=== PATIENT | male | born 1975 | race Caucasian/White ===

== ENCOUNTER 2020-08-23 05:39 | Observation (INO) ==
[2020-08-23] MEDS ORDERED: Ondansetron 4 MG/2 ML VIAL IVP PRN (09:12)
[2020-08-23] MEDS ORDERED: Naloxone 0.4 MG/ML INJ IVP PRN (09:12)
[2020-08-23] MEDS: Nicotine 21 MG PATCH.TD24 TD SCH (10:44)
[2020-08-23] MEDS: Metoprolol XL (24 HR) Succ 25 MG TAB.ER.24H PO SCH (10:45)
[2020-08-23] MEDS: Albuterol 2.5 MG/3 ML NEBULIZER IH SCH ×4 (11:20→23:17)
[2020-08-23] MEDS: *HR* Heparin 5,000 UNIT/ML VIAL SQ SCH (17:03)
[2020-08-24 02:23] LABS: Basophils % 0.2 %; Eosinophils # 0.1 K/mcL (0.0-0.6); Eosinophils % 0.6 %; Hematocrit 40.5 % (37.5-50.1); Hemoglobin 13.7 g/dL (12.9-16.9); Immature Granulocytes % 0.3 % (0-4); Lymphocytes # 2.2 K/mcL (0.6-4.6); Lymphocytes % 20.6 %; Mean Corpuscular HGB Conc 33.8 g/dL (31.6-35.5); Mean Corpuscular Hemoglobin 31.8 pg (28.0-33.3); Mean Platelet Volume 11.6 fL (9.4-12.4); Monocytes # 0.7 K/mcL (0.0-1.3); Monocytes % 6.5 %; Neutrophils # 7.8 K/mcL (1.6-8.9); Platelet Count 240 K/mcL (140-400); Red Blood Count 4.31 M/mcL (4.19-5.50); Red Cell Distribution Width 12.8 % (11.5-14.5); Segmented Neutrophils % 71.8 %; White Blood Count 10.9 K/mcL (4.3-11.1)
[2020-08-24 02:41] LABS: BUN/Creatinine Ratio 29 (6-26); Blood Urea Nitrogen 26 mg/dL (6-20); Calcium 8.6 mg/dL (8.6-10.3); Carbon Dioxide 27 mEq/L (23-29); Chloride 107 mEq/L (98-107); Glucose 131 mg/dL (70-105); Osmolality,Calculated 301 (280-300); Potassium 3.2 mEq/L (3.5-5.1); Sodium 142 mEq/L (136-145); eGFR For African Americans > 60 (> 60); eGFR For Non-African Americans > 60 (> 60)
[2020-08-24] MEDS: Albuterol 2.5 MG/3 ML NEBULIZER IH SCH ×3 (03:53→11:19)
[2020-08-24] MEDS ORDERED: Azithromycin 500 MG in 0.9 % Sodium Chloride 250 ML IVPB SCH (06:00)
[2020-08-24] MEDS ORDERED: cefTRIAXone 1,000 MG in Water for inj. (sterile) 10 ML IVP SCH (06:00)
[2020-08-24] MEDS: *HR* Heparin 5,000 UNIT/ML VIAL SQ SCH (07:21)
[2020-08-24] MEDS ORDERED: Perflutren Lipid Microsphere 1.3 ML in 0.9 % Sodium Chloride 8.7 ML IVP PRN (07:36)
[2020-08-24] MEDS: Metoprolol XL (24 HR) Succ 25 MG TAB.ER.24H PO SCH (07:54)
[2020-08-24] MEDS: Nicotine 21 MG PATCH.TD24 TD SCH (07:54)
[2020-08-24] MEDS ORDERED: Aspirin 81 MG TAB.CHEW PO SCH (09:00)
[2020-08-24] MEDS ORDERED: MethylPREDNISolone 40 MG/ML VIAL IVP SCH (09:00)
[2020-08-24 11:13] VITALS: BP 157/89
== END 2020-08-24 14:20 | disposition home or self-care (01) ==
LOC: 2ANU
PROVIDERS: ADMIT Internal Medicine; ATTEND Internal Medicine

== ENCOUNTER 2020-09-10 00:07 | Inpatient (IN) ==
[2020-09-10] MEDS ORDERED: Naloxone 0.4 MG/ML INJ IVP PRN (01:29)
[2020-09-10] MEDS ORDERED: Ondansetron ODT 4 MG TAB.RAPDIS SL PRN (01:29)
[2020-09-10] MEDS ORDERED: Acetaminophen 325 MG TABLET PO PRN (01:29)
[2020-09-10] MEDS ORDERED: Perflutren Lipid Microsphere 1.3 ML in 0.9 % Sodium Chloride 8.7 ML IVP PRN (01:30)
[2020-09-10] MEDS ORDERED: Ipratropium/Albuterol Neb 3 ML IH PRN (01:31)
[2020-09-10] MEDS ORDERED: *HR* Heparin 5,000 UNIT/ML VIAL IVP PRN (01:32)
[2020-09-10 02:03] LABS: Basophils % 0.3 %; Eosinophils # 0.1 K/mcL (0.0-0.6); Eosinophils % 0.5 %; Hematocrit 41.8 % (37.5-50.1); Hemoglobin 14.1 g/dL (12.9-16.9); Immature Granulocytes % 0.4 % (0-4); Lymphocytes # 0.7 K/mcL (0.6-4.6); Lymphocytes % 7.3 %; Mean Corpuscular HGB Conc 33.7 g/dL (31.6-35.5); Mean Corpuscular Hemoglobin 31.5 pg (28.0-33.3); Mean Corpuscular Volume 93.5 fL (83.0-100.0); Monocytes # 0.1 K/mcL (0.0-1.3); Neutrophils # 8.6 K/mcL (1.6-8.9); Platelet Count 273 K/mcL (140-400); Red Blood Count 4.47 M/mcL (4.19-5.50); Red Cell Distribution Width 13.5 % (11.5-14.5); Segmented Neutrophils % 90.5 %; White Blood Count 9.5 K/mcL (4.3-11.1)
[2020-09-10 02:24] LABS: Alanine Aminotransferase 27 Units/L (7-52); Albumin 3.8 g/dL (3.5-5.7); Albumin/Globulin Ratio 1.3 (1.1-2.2); Alkaline Phosphatase 112 Units/L (34-104); Aspartate Amino Transferase 30 Units/L (13-39); BUN/Creatinine Ratio 30 (6-26); Bilirubin,Total 0.5 mg/dL (0.3-1.0); Blood Urea Nitrogen 25 mg/dL (6-20); Calcium 8.8 mg/dL (8.6-10.3); Carbon Dioxide 22 mEq/L (23-29); Chloride 106 mEq/L (98-107); Chol/HDL Ratio 5.7 (0-4.9); Cholesterol 199 mg/dL (< 200); Glucose 130 mg/dL (70-105); HDL Cholesterol 35 mg/dL (40-59); LDL Cholesterol,Calculated 153 mg/dL (< 100); Magnesium 1.7 mg/dL (1.6-2.6); Osmolality,Calculated 294 (280-300); Potassium 3.5 mEq/L (3.5-5.1); Sodium 139 mEq/L (136-145); Total Protein 6.8 g/dL (6.4-8.9); Triglycerides 55 mg/dL (< 150); eGFR For African Americans > 60 (> 60); eGFR For Non-African Americans > 60 (> 60)
[2020-09-10 02:27] LABS: INR 1.3; Prothrombin Time 15.4 Seconds (9.4-12.1)
[2020-09-10] MEDS: Heparin 25,000UNIT/250ML 1/2NS 25,000 UNIT/250 ML IV.SOLN IVC SCH (02:42)
[2020-09-10 04:47] LABS: Bilirubin,Urine Negative (Negative); Blood,Urine Negative (Negative); Clarity,Urine Clear (Clear); Color,Urine Colorless (Yellow); Glucose,Urine (UA) Normal (Normal); Ketones,Urine Negative (Negative); Leukocyte Esterase,Urine Negative (Negative); Nitrite,Urine Negative (Negative); Protein,Urine Negative (Neg-Trace); Specific Gravity,Urine 1.011 (1.010-1.025); Urobilinogen,Urine Normal (Normal)
[2020-09-10 05:49] LABS: Amphetamine Screen,Urine Positive ng/mL (Cutoff=1000); Barbiturate Screen,Urine Negative ng/mL (Cutoff=200); Benzodiazepines Screen,Urine Negative ng/mL (Cutoff=200); Cannabinoid Screen,Urine Negative ng/mL (Cutoff = 50); Cocaine Screen,Urine Negative ng/mL (Cutoff= 300); Opiate Screen,Urine Negative ng/mL (Cutoff=300); Phencyclidine Screen,Urine Negative ng/mL (Cutoff=25)
[2020-09-10] MEDS ORDERED: Nitroglycerin 0.4 MG TAB.SUBL SL PRN (07:51)
[2020-09-10] MEDS ORDERED: cefTRIAXone 1,000 MG in 0.9 % Sodium Chloride Mini Bag 100 ML IVPB SCH (09:00)
[2020-09-10] MEDS: *HR* LORazepam 0.5 MG TABLET PO PRN (09:14)
[2020-09-10] MEDS: Aspirin 81 MG TAB.CHEW PO SCH (09:15)
[2020-09-10] MEDS: cefTRIAXone 1,000 MG in Water for inj. (sterile) 10 ML IVP SCH (09:15)
[2020-09-10] MEDS: Azithromycin 500 MG in 0.9 % Sodium Chloride 250 ML IVPB SCH (09:16)
[2020-09-10] MEDS: *HR* Heparin 5,000 UNIT/ML VIAL IVP PRN ×2 (09:42→22:42)
[2020-09-10] MEDS: Ipratropium/Albuterol Neb 3 ML IH SCH ×3 (10:30→22:30)
[2020-09-10] MEDS: Furosemide 40 MG/4 ML VIAL IVP SCH (11:29)
[2020-09-10 12:45] LABS: Estimated Average Glucose 114 mg/dl; Hemoglobin A1C 5.6 %
[2020-09-11] MEDS: Ipratropium/Albuterol Neb 3 ML IH SCH ×4 (04:04→22:55)
[2020-09-11] MEDS: *HR* LORazepam 0.5 MG TABLET PO PRN ×2 (04:36→17:29)
[2020-09-11 05:36] LABS: BUN/Creatinine Ratio 34 (6-26); Blood Urea Nitrogen 38 mg/dL (6-20); Calcium 8.9 mg/dL (8.6-10.3); Carbon Dioxide 28 mEq/L (23-29); Chloride 105 mEq/L (98-107); Glucose 110 mg/dL (70-105); Magnesium 1.8 mg/dL (1.6-2.6); Osmolality,Calculated 302 (280-300); Potassium 4.4 mEq/L (3.5-5.1); Sodium 141 mEq/L (136-145); Troponin I 0.08 ng/mL (< 0.04); eGFR For African Americans > 60 (> 60); eGFR For Non-African Americans > 60 (> 60)
[2020-09-11] MEDS: Heparin 25,000UNIT/250ML 1/2NS 25,000 UNIT/250 ML IV.SOLN IVC SCH (05:43)
[2020-09-11] MEDS: *HR* Heparin 5,000 UNIT/ML VIAL IVP PRN (05:44)
[2020-09-11] MEDS: Aspirin 81 MG TAB.CHEW PO SCH (08:10)
[2020-09-11] MEDS: Furosemide 40 MG/4 ML VIAL IVP SCH ×2 (08:11→21:34)
[2020-09-11] MEDS: cefTRIAXone 1,000 MG in Water for inj. (sterile) 10 ML IVP SCH (08:11)
[2020-09-11] MEDS: Azithromycin 500 MG in 0.9 % Sodium Chloride 250 ML IVPB SCH (08:12)
[2020-09-11] MEDS: carvediloL 6.25 MG TABLET PO SCH (17:28)
[2020-09-12] MEDS: Ipratropium/Albuterol Neb 3 ML IH SCH ×4 (04:02→21:42)
[2020-09-12] MEDS: Heparin 25,000UNIT/250ML 1/2NS 25,000 UNIT/250 ML IV.SOLN IVC SCH ×2 (05:19→11:35)
[2020-09-12 07:28] LABS: Hematocrit 43.3 % (37.5-50.1); Hemoglobin 14.4 g/dL (12.9-16.9); Mean Corpuscular HGB Conc 33.3 g/dL (31.6-35.5); Mean Corpuscular Hemoglobin 31.6 pg (28.0-33.3); Mean Platelet Volume 11.9 fL (9.4-12.4); Platelet Count 262 K/mcL (140-400); Red Blood Count 4.56 M/mcL (4.19-5.50); Red Cell Distribution Width 13.4 % (11.5-14.5); White Blood Count 8.9 K/mcL (4.3-11.1)
[2020-09-12 07:49] LABS: BUN/Creatinine Ratio 39 (6-26); Blood Urea Nitrogen 36 mg/dL (6-20); Calcium 8.9 mg/dL (8.6-10.3); Carbon Dioxide 27 mEq/L (23-29); Chloride 101 mEq/L (98-107); Glucose 93 mg/dL (70-105); Osmolality,Calculated 294 (280-300); Potassium 3.7 mEq/L (3.5-5.1); Sodium 138 mEq/L (136-145); eGFR For African Americans > 60 (> 60); eGFR For Non-African Americans > 60 (> 60)
[2020-09-12] MEDS: lisinopriL 5 MG TABLET PO SCH (08:04)
[2020-09-12] MEDS: carvediloL 6.25 MG TABLET PO SCH ×2 (08:04→16:38)
[2020-09-12] MEDS: Aspirin 81 MG TAB.CHEW PO SCH (08:04)
[2020-09-12] MEDS: cefTRIAXone 1,000 MG in Water for inj. (sterile) 10 ML IVP SCH (08:06)
[2020-09-12] MEDS: Furosemide 40 MG/4 ML VIAL IVP SCH ×2 (08:06→19:57)
[2020-09-12] MEDS: Azithromycin 500 MG in 0.9 % Sodium Chloride 250 ML IVPB SCH (08:07)
[2020-09-12] MEDS: Spironolactone 25 MG TABLET PO SCH (11:12)
[2020-09-12] MEDS ORDERED: *HR* Heparin 5,000 UNIT/ML VIAL IVP PRN ×2 (11:13)
[2020-09-12] MEDS ORDERED: Furosemide 40 MG/4 ML VIAL IVP ONE (13:00)
[2020-09-12] MEDS: *HR* LORazepam 0.5 MG TABLET PO PRN (16:42)
[2020-09-13] MEDS: Ipratropium/Albuterol Neb 3 ML IH SCH ×2 (04:09→09:24)
[2020-09-13 07:42] VITALS: BP 113/71
[2020-09-13] MEDS: *HR* LORazepam 0.5 MG TABLET PO PRN (08:09)
[2020-09-13] MEDS: Aspirin 81 MG TAB.CHEW PO SCH (08:09)
[2020-09-13] MEDS: lisinopriL 5 MG TABLET PO SCH (08:09)
[2020-09-13] MEDS: Spironolactone 25 MG TABLET PO SCH (08:09)
[2020-09-13] MEDS: carvediloL 6.25 MG TABLET PO SCH (08:10)
[2020-09-13] MEDS: cefTRIAXone 1,000 MG in Water for inj. (sterile) 10 ML IVP SCH (08:10)
[2020-09-13] MEDS: Furosemide 40 MG/4 ML VIAL IVP SCH (08:10)
[2020-09-13] MEDS: Azithromycin 500 MG in 0.9 % Sodium Chloride 250 ML IVPB SCH (08:11)
[2020-09-13] MEDS: Heparin 25,000UNIT/250ML 1/2NS 25,000 UNIT/250 ML IV.SOLN IVC SCH (08:11)
[2020-09-13 08:56] LABS: Hematocrit 44.6 % (37.5-50.1); Hemoglobin 14.7 g/dL (12.9-16.9); Mean Corpuscular Hemoglobin 30.9 pg (28.0-33.3); Mean Corpuscular Volume 93.9 fL (83.0-100.0); Mean Platelet Volume 11.2 fL (9.4-12.4); Platelet Count 276 K/mcL (140-400); Red Blood Count 4.75 M/mcL (4.19-5.50); Red Cell Distribution Width 13.3 % (11.5-14.5); White Blood Count 7.3 K/mcL (4.3-11.1)
[2020-09-13 09:17] LABS: BUN/Creatinine Ratio 45 (6-26); Blood Urea Nitrogen 40 mg/dL (6-20); Calcium 8.8 mg/dL (8.6-10.3); Carbon Dioxide 28 mEq/L (23-29); Chloride 100 mEq/L (98-107); Glucose 100 mg/dL (70-105); Osmolality,Calculated 294 (280-300); Potassium 3.8 mEq/L (3.5-5.1); Sodium 137 mEq/L (136-145); eGFR For African Americans > 60 (> 60); eGFR For Non-African Americans > 60 (> 60)
== END 2020-09-13 10:38 | disposition left against medical advice (07) | DRG 720 ==
LOC: 2ANU → SUATTDRO 01:11
PROVIDERS: ADMIT Student in an Organized Health Care Education/Training Program; ATTEND General Practice

== ENCOUNTER 2020-09-29 18:07 | Inpatient (IN) ==
[2020-09-29] MEDS ORDERED: Naloxone 0.4 MG/ML INJ IVP PRN (20:31)
[2020-09-29] MEDS ORDERED: Ondansetron 4 MG/2 ML VIAL IVP PRN (20:31)
[2020-09-29] MEDS: Acetaminophen 325 MG TABLET PO PRN (21:20)
[2020-09-29] MEDS: Melatonin 3 MG TABLET PO PRN (21:20)
[2020-09-30] MEDS: Aspirin 325 MG TABLET PO SCH ×2 (00:22→08:15)
[2020-09-30 05:34] LABS: Hematocrit 43.8 % (37.5-50.1); Immature Granulocytes % 0.3 % (0-4); Lymphocytes # 0.9 K/mcL (0.6-4.6); Lymphocytes % 10.5 %; Mean Corpuscular HGB Conc 34.2 g/dL (31.6-35.5); Mean Corpuscular Hemoglobin 32.2 pg (28.0-33.3); Mean Platelet Volume 11.4 fL (9.4-12.4); Monocytes # 0.4 K/mcL (0.0-1.3); Monocytes % 4.6 %; Neutrophils # 7.5 K/mcL (1.6-8.9); Platelet Count 383 K/mcL (140-400); Red Blood Count 4.66 M/mcL (4.19-5.50); Red Cell Distribution Width 13.7 % (11.5-14.5); Segmented Neutrophils % 84.6 %; White Blood Count 8.9 K/mcL (4.3-11.1)
[2020-09-30] MEDS: *HR* Heparin 5,000 UNIT/ML VIAL SQ SCH ×2 (05:39→17:57)
[2020-09-30 06:26] LABS: Magnesium 1.8 mg/dL (1.6-2.6); Troponin I 0.07 ng/mL (< 0.04)
[2020-09-30 06:27] LABS: Alanine Aminotransferase 207 Units/L (7-52); Albumin 3.3 g/dL (3.5-5.7); Albumin/Globulin Ratio 1.2 (1.1-2.2); Alkaline Phosphatase 217 Units/L (34-104); Aspartate Amino Transferase 74 Units/L (13-39); BUN/Creatinine Ratio 37 (6-26); Bilirubin,Total 0.5 mg/dL (0.3-1.0); Blood Urea Nitrogen 33 mg/dL (6-20); Calcium 8.5 mg/dL (8.6-10.3); Carbon Dioxide 22 mEq/L (23-29); Chloride 105 mEq/L (98-107); Globulin 2.7 g/dL (2.4-3.5); Glucose 152 mg/dL (70-105); Osmolality,Calculated 294 (280-300); Phosphorous 2.7 mg/dL (2.7-4.5); Potassium 4.1 mEq/L (3.5-5.1); Sodium 137 mEq/L (136-145); eGFR For African Americans > 60 (> 60); eGFR For Non-African Americans > 60 (> 60)
[2020-09-30] MEDS ORDERED: Furosemide 40 MG/4 ML VIAL IVP SCH (06:30)
[2020-09-30] MEDS: Nicotine 21 MG PATCH.TD24 TD SCH ×2 (06:47→08:49)
[2020-09-30] MEDS: Furosemide 40 MG/4 ML VIAL IVP SCH (17:57)
[2020-09-30] MEDS ORDERED: Melatonin 3 MG TABLET PO ONE (18:57)
[2020-09-30] MEDS ORDERED: hydrOXYzine pamoate 25 MG CAPSULE PO ONE (18:57)
[2020-09-30 19:46] LABS: Lactate Dehydrogenase 193 Units/L (140-271)
[2020-09-30] MEDS: Melatonin 3 MG TABLET PO PRN (20:15)
[2020-09-30] MEDS: Acetaminophen 325 MG TABLET PO PRN (20:15)
[2020-10-01 05:51] LABS: BUN/Creatinine Ratio 39 (6-26); Blood Urea Nitrogen 38 mg/dL (6-20); Calcium 8.2 mg/dL (8.6-10.3); Carbon Dioxide 25 mEq/L (23-29); Chloride 103 mEq/L (98-107); Glucose 105 mg/dL (70-105); Osmolality,Calculated 293 (280-300); Potassium 3.5 mEq/L (3.5-5.1); Sodium 137 mEq/L (136-145); eGFR For African Americans > 60 (> 60); eGFR For Non-African Americans > 60 (> 60)
[2020-10-01] MEDS: *HR* Heparin 5,000 UNIT/ML VIAL SQ SCH ×2 (06:30→17:21)
[2020-10-01] MEDS: Aspirin 325 MG TABLET PO SCH (09:13)
[2020-10-01] MEDS: Nicotine 21 MG PATCH.TD24 TD SCH (09:14)
[2020-10-01] MEDS: Furosemide 40 MG/4 ML VIAL IVP SCH ×2 (09:14→17:21)
[2020-10-01] MEDS: lisinopriL 5 MG TABLET PO SCH (12:19)
[2020-10-01 19:16] LABS: Glucose,Pleural Fluid 118 mg/dL (No Ref Range); LDH,Pleural Fluid 76 Units/L (No Ref Range); Total Protein,Pleural Fluid < 2.0 g/dL
[2020-10-01 19:27] LABS: RBC,Pleural Fluid 3000 RBC/mcL
[2020-10-01 21:00] LABS: Basophils,Pleural Fluid 0 %; Eosinophils,Pleural Fluid 0 %; Monocytes,Pleural Fluid 0 %
[2020-10-01 21:08] LABS: Appearance of Pleural Fl Hazy (Clear)
[2020-10-02 01:43] LABS: BUN/Creatinine Ratio 42 (6-26); Blood Urea Nitrogen 41 mg/dL (6-20); Calcium 8.6 mg/dL (8.6-10.3); Carbon Dioxide 31 mEq/L (23-29); Chloride 96 mEq/L (98-107); Glucose 87 mg/dL (70-105); Osmolality,Calculated 293 (280-300); Potassium 3.4 mEq/L (3.5-5.1); Sodium 137 mEq/L (136-145); eGFR For African Americans > 60 (> 60); eGFR For Non-African Americans > 60 (> 60)
[2020-10-02] MEDS: *HR* Heparin 5,000 UNIT/ML VIAL SQ SCH ×2 (05:35→17:40)
[2020-10-02] MEDS: lisinopriL 5 MG TABLET PO SCH (08:21)
[2020-10-02] MEDS: Furosemide 40 MG/4 ML VIAL IVP SCH (08:21)
[2020-10-02] MEDS: Nicotine 21 MG PATCH.TD24 TD SCH (08:21)
[2020-10-02] MEDS: Aspirin 325 MG TABLET PO SCH (08:21)
[2020-10-02] MEDS: Metoprolol XL (24 HR) Succ 25 MG TAB.ER.24H PO SCH ×2 (11:30→17:41)
[2020-10-02] MEDS: Furosemide 40 MG TABLET PO SCH (17:40)
[2020-10-02] MEDS: Potassium Citrate 10 MEQ TABLET.ER PO SCH (20:04)
[2020-10-02] MEDS: Melatonin 3 MG TABLET PO PRN (20:05)
[2020-10-03 03:27] LABS: Basophils # 0.1 K/mcL (0.0-0.2); Basophils % 0.6 %; Eosinophils # 0.3 K/mcL (0.0-0.6); Eosinophils % 3.5 %; Hematocrit 44.9 % (37.5-50.1); Hemoglobin 14.8 g/dL (12.9-16.9); Immature Granulocytes % 0.9 % (0-4); Lymphocytes # 2.8 K/mcL (0.6-4.6); Lymphocytes % 28.9 %; Mean Corpuscular Hemoglobin 31.9 pg (28.0-33.3); Mean Corpuscular Volume 96.8 fL (83.0-100.0); Mean Platelet Volume 10.6 fL (9.4-12.4); Monocytes # 0.7 K/mcL (0.0-1.3); Monocytes % 7.5 %; Neutrophils # 5.6 K/mcL (1.6-8.9); Platelet Count 380 K/mcL (140-400); Red Blood Count 4.64 M/mcL (4.19-5.50); Red Cell Distribution Width 14.1 % (11.5-14.5); Segmented Neutrophils % 58.6 %; White Blood Count 9.6 K/mcL (4.3-11.1)
[2020-10-03 03:50] LABS: BUN/Creatinine Ratio 40 (6-26); Blood Urea Nitrogen 33 mg/dL (6-20); Calcium 8.7 mg/dL (8.6-10.3); Carbon Dioxide 29 mEq/L (23-29); Chloride 98 mEq/L (98-107); Glucose 99 mg/dL (70-105); Osmolality,Calculated 289 (280-300); Potassium 3.7 mEq/L (3.5-5.1); Sodium 136 mEq/L (136-145); eGFR For African Americans > 60 (> 60); eGFR For Non-African Americans > 60 (> 60)
[2020-10-03] MEDS: *HR* Heparin 5,000 UNIT/ML VIAL SQ SCH ×2 (04:49→18:12)
[2020-10-03] MEDS: lisinopriL 5 MG TABLET PO SCH (08:07)
[2020-10-03] MEDS: Metoprolol XL (24 HR) Succ 25 MG TAB.ER.24H PO SCH (08:07)
[2020-10-03] MEDS: Furosemide 40 MG TABLET PO SCH ×2 (08:07→18:12)
[2020-10-03] MEDS: Nicotine 21 MG PATCH.TD24 TD SCH (08:07)
[2020-10-03] MEDS: Aspirin 325 MG TABLET PO SCH (08:07)
[2020-10-03] MEDS: Potassium Citrate 10 MEQ TABLET.ER PO SCH ×2 (08:11→21:19)
[2020-10-03] MEDS ORDERED: hydrOXYzine pamoate 25 MG CAPSULE PO PRN (10:57)
[2020-10-04] MEDS: *HR* Heparin 5,000 UNIT/ML VIAL SQ SCH ×2 (05:19→16:48)
[2020-10-04 06:26] LABS: BUN/Creatinine Ratio 47 (6-26); Blood Urea Nitrogen 36 mg/dL (6-20); Calcium 9.2 mg/dL (8.6-10.3); Carbon Dioxide 28 mEq/L (23-29); Chloride 98 mEq/L (98-107); Glucose 107 mg/dL (70-105); Osmolality,Calculated 287 (280-300); Sodium 134 mEq/L (136-145); eGFR For African Americans > 60 (> 60); eGFR For Non-African Americans > 60 (> 60)
[2020-10-04] MEDS: lisinopriL 5 MG TABLET PO SCH (07:20)
[2020-10-04] MEDS: Metoprolol XL (24 HR) Succ 25 MG TAB.ER.24H PO SCH (07:20)
[2020-10-04] MEDS: Potassium Citrate 10 MEQ TABLET.ER PO SCH ×2 (07:20→20:24)
[2020-10-04] MEDS: Furosemide 40 MG TABLET PO SCH ×2 (07:20→16:48)
[2020-10-04] MEDS: Nicotine 21 MG PATCH.TD24 TD SCH (07:20)
[2020-10-04] MEDS: Aspirin 325 MG TABLET PO SCH (07:20)
[2020-10-04 07:35] LABS: Fluid Source for Cholesterol PLEURAL FLUID
[2020-10-04 10:24] LABS: Cholesterol,Body Fluid 24 mg/dL
[2020-10-04] MEDS ORDERED: Piperacillin/Tazobactam 3.375 GM in Water for inj. (sterile) 20 ML IVP ONE (15:41)
[2020-10-04] MEDS ORDERED: Isovue-370 500 ML BOTTLE IVP ONE (16:04)
[2020-10-04] MEDS: Piperacillin/Tazobactam 3.375 GM in 0.9 % Sodium Chloride Mini Bag 100 ML IVPB SCH (16:49)
[2020-10-05] MEDS: Piperacillin/Tazobactam 3.375 GM in 0.9 % Sodium Chloride Mini Bag 100 ML IVPB SCH ×2 (00:16→05:59)
[2020-10-05] MEDS: Melatonin 3 MG TABLET PO PRN (00:16)
[2020-10-05] MEDS: *HR* Heparin 5,000 UNIT/ML VIAL SQ SCH (04:07)
[2020-10-05 05:18] LABS: Basophils # 0.1 K/mcL (0.0-0.2); Basophils % 1.2 %; Eosinophils # 0.3 K/mcL (0.0-0.6); Hematocrit 45.6 % (37.5-50.1); Hemoglobin 14.8 g/dL (12.9-16.9); Immature Granulocytes % 1.3 % (0-4); Lymphocytes # 2.8 K/mcL (0.6-4.6); Lymphocytes % 26.3 %; Mean Corpuscular HGB Conc 32.5 g/dL (31.6-35.5); Mean Corpuscular Hemoglobin 31.4 pg (28.0-33.3); Mean Corpuscular Volume 96.6 fL (83.0-100.0); Mean Platelet Volume 10.4 fL (9.4-12.4); Monocytes # 0.8 K/mcL (0.0-1.3); Monocytes % 7.8 %; Neutrophils # 6.5 K/mcL (1.6-8.9); Platelet Count 381 K/mcL (140-400); Red Blood Count 4.72 M/mcL (4.19-5.50); Segmented Neutrophils % 60.4 %; White Blood Count 10.8 K/mcL (4.3-11.1)
[2020-10-05 05:37] LABS: BUN/Creatinine Ratio 40 (6-26); Blood Urea Nitrogen 35 mg/dL (6-20); Calcium 9.5 mg/dL (8.6-10.3); Carbon Dioxide 27 mEq/L (23-29); Chloride 97 mEq/L (98-107); Glucose 95 mg/dL (70-105); Osmolality,Calculated 284 (280-300); Potassium 4.4 mEq/L (3.5-5.1); Sodium 133 mEq/L (136-145); eGFR For African Americans > 60 (> 60); eGFR For Non-African Americans > 60 (> 60)
[2020-10-05] MEDS: Furosemide 40 MG TABLET PO SCH (05:59)
[2020-10-05] MEDS: Potassium Citrate 10 MEQ TABLET.ER PO SCH (08:04)
[2020-10-05] MEDS: Aspirin 325 MG TABLET PO SCH (08:04)
[2020-10-05] MEDS: lisinopriL 5 MG TABLET PO SCH (08:04)
[2020-10-05] MEDS: Metoprolol XL (24 HR) Succ 25 MG TAB.ER.24H PO SCH (08:04)
[2020-10-05] MEDS: Nicotine 21 MG PATCH.TD24 TD SCH (08:05)
[2020-10-05 14:48] VITALS: BP 122/79
== END 2020-10-05 23:40 | disposition home or self-care (01) | DRG 194 ==
LOC: CDU → 3BNU 10-01 16:58 → SUATTDRO 10-01 18:40 → UNDODISIN 10-05 17:44
PROVIDERS: ADMIT Internal Medicine; ATTEND Internal Medicine

== ENCOUNTER 2020-11-25 01:14 | Inpatient (IN) ==
[2020-11-25] MEDS ORDERED: Ondansetron 4 MG/2 ML VIAL IVP PRN (03:11)
[2020-11-25] MEDS ORDERED: Naloxone 0.4 MG/ML INJ IVP PRN (03:11)
[2020-11-25 05:56] LABS: Hematocrit 38.5 % (37.5-50.1); Hemoglobin 12.8 g/dL (12.9-16.9); Mean Corpuscular HGB Conc 33.2 g/dL (31.6-35.5); Mean Corpuscular Volume 96.3 fL (83.0-100.0); Mean Platelet Volume 11.5 fL (9.4-12.4); Platelet Count 274 K/mcL (140-400); Segmented Neutrophils % 77.3 %; White Blood Count 10.6 K/mcL (4.3-11.1)
[2020-11-25 05:57] LABS: Basophils % 0.4 %; Eosinophils # 0.1 K/mcL (0.0-0.6); Eosinophils % 0.6 %; Immature Granulocytes % 0.4 % (0-4); Lymphocytes # 1.8 K/mcL (0.6-4.6); Lymphocytes % 16.7 %; Monocytes # 0.5 K/mcL (0.0-1.3); Monocytes % 4.6 %; Neutrophils # 8.2 K/mcL (1.6-8.9)
[2020-11-25 06:07] LABS: Troponin I 0.06 ng/mL (< 0.04)
[2020-11-25 06:55] LABS: Alanine Aminotransferase 23 Units/L (7-52); Albumin 3.5 g/dL (3.5-5.7); Albumin/Globulin Ratio 1.3 (1.1-2.2); Alkaline Phosphatase 102 Units/L (34-104); Aspartate Amino Transferase 23 Units/L (13-39); BUN/Creatinine Ratio 24 (6-26); Bilirubin,Total 0.6 mg/dL (0.3-1.0); Blood Urea Nitrogen 20 mg/dL (6-20); Calcium 8.3 mg/dL (8.6-10.3); Carbon Dioxide 22 mEq/L (23-29); Globulin 2.6 g/dL (2.4-3.5); Glucose 109 mg/dL (70-105); Magnesium 1.8 mg/dL (1.6-2.6); Phosphorous 3.4 mg/dL (2.7-4.5); Total Protein 6.1 g/dL (6.4-8.9); eGFR For African Americans > 60 (> 60); eGFR For Non-African Americans > 60 (> 60)
[2020-11-25 06:56] LABS: Chloride 106 mEq/L (98-107); Osmolality,Calculated 291 (280-300); Potassium 3.6 mEq/L (3.5-5.1); Sodium 139 mEq/L (136-145)
[2020-11-25] MEDS ORDERED: Azithromycin 500 MG in D5% in Water 250 ML IVPB SCH (07:00)
[2020-11-25] MEDS: Piperacillin/Tazobactam 3.375 GM in 0.9 % Sodium Chloride Mini Bag 100 ML IVPB SCH ×2 (07:43→15:34)
[2020-11-25] MEDS: Metoprolol XL (24 HR) Succ 25 MG TAB.ER.24H PO SCH (08:55)
[2020-11-25] MEDS: lisinopriL 5 MG TABLET PO SCH (08:55)
[2020-11-25] MEDS: Nicotine 21 MG PATCH.TD24 TD SCH (08:55)
[2020-11-25] MEDS ORDERED: cefTRIAXone 1,000 MG in Water for inj. (sterile) 10 ML IVP SCH (09:00)
[2020-11-25] MEDS ORDERED: Levalbuterol Neb 0.63 MG/3 ML ONE (11:14)
[2020-11-25] MEDS: Levalbuterol Neb 0.63 MG/3 ML IH SCH ×3 (11:30→21:34)
[2020-11-25] MEDS: Furosemide 40 MG/4 ML VIAL IVP SCH (11:57)
[2020-11-26] MEDS: Piperacillin/Tazobactam 3.375 GM in 0.9 % Sodium Chloride Mini Bag 100 ML IVPB SCH ×4 (00:18→23:35)
[2020-11-26] MEDS: Levalbuterol Neb 0.63 MG/3 ML IH SCH ×4 (03:22→22:06)
[2020-11-26 07:48] LABS: Basophils % 0.4 %; Eosinophils # 0.2 K/mcL (0.0-0.6); Eosinophils % 2.1 %; Hematocrit 37.8 % (37.5-50.1); Hemoglobin 12.7 g/dL (12.9-16.9); Immature Granulocytes % 0.5 % (0-4); Lymphocytes # 2.4 K/mcL (0.6-4.6); Mean Corpuscular HGB Conc 33.6 g/dL (31.6-35.5); Mean Corpuscular Hemoglobin 31.8 pg (28.0-33.3); Mean Corpuscular Volume 94.5 fL (83.0-100.0); Mean Platelet Volume 11.6 fL (9.4-12.4); Monocytes # 0.6 K/mcL (0.0-1.3); Monocytes % 5.5 %; Neutrophils # 7.2 K/mcL (1.6-8.9); Platelet Count 244 K/mcL (140-400); Red Cell Distribution Width 13.8 % (11.5-14.5); Segmented Neutrophils % 68.5 %; White Blood Count 10.5 K/mcL (4.3-11.1)
[2020-11-26] MEDS: Metoprolol XL (24 HR) Succ 25 MG TAB.ER.24H PO SCH (08:09)
[2020-11-26] MEDS: Furosemide 40 MG/4 ML VIAL IVP SCH (08:10)
[2020-11-26] MEDS: Nicotine 21 MG PATCH.TD24 TD SCH (08:10)
[2020-11-26] MEDS: lisinopriL 5 MG TABLET PO SCH (08:10)
[2020-11-26 08:21] LABS: BUN/Creatinine Ratio 28 (6-26); Blood Urea Nitrogen 21 mg/dL (6-20); Carbon Dioxide 23 mEq/L (23-29); Chloride 108 mEq/L (98-107); Glucose 111 mg/dL (70-105); Magnesium 1.6 mg/dL (1.6-2.6); Osmolality,Calculated 292 (280-300); Potassium 3.6 mEq/L (3.5-5.1); Sodium 139 mEq/L (136-145); eGFR For African Americans > 60 (> 60); eGFR For Non-African Americans > 60 (> 60)
[2020-11-26 12:14] LABS: RBC,Pleural Fluid 2000 RBC/mcL
[2020-11-26 12:20] LABS: Appearance of Pleural Fl Hazy (Clear)
[2020-11-26 12:20] LABS: Glucose,Pleural Fluid 118 mg/dL (No Ref Range); LDH,Pleural Fluid 54 Units/L (No Ref Range); Total Protein,Pleural Fluid < 2.0 g/dL
[2020-11-26 13:08] LABS: Basophils,Pleural Fluid 0 %; Eosinophils,Pleural Fluid 0 %
[2020-11-26] MEDS: Vancomycin 1,250 MG/262.5 ML IV.SOLN IVPB SCH (21:14)
[2020-11-27 03:08] LABS: Basophils # 0.1 K/mcL (0.0-0.2); Basophils % 0.5 %; Eosinophils # 0.5 K/mcL (0.0-0.6); Eosinophils % 4.7 %; Hemoglobin 13.4 g/dL (12.9-16.9); Immature Granulocytes % 0.3 % (0-4); Lymphocytes # 2.9 K/mcL (0.6-4.6); Mean Corpuscular HGB Conc 34.4 g/dL (31.6-35.5); Mean Corpuscular Hemoglobin 32.7 pg (28.0-33.3); Mean Corpuscular Volume 95.1 fL (83.0-100.0); Mean Platelet Volume 11.2 fL (9.4-12.4); Monocytes # 0.6 K/mcL (0.0-1.3); Monocytes % 6.5 %; Neutrophils # 5.5 K/mcL (1.6-8.9); Platelet Count 247 K/mcL (140-400); Red Cell Distribution Width 13.8 % (11.5-14.5); White Blood Count 9.6 K/mcL (4.3-11.1)
[2020-11-27 03:25] LABS: BUN/Creatinine Ratio 33 (6-26); Blood Urea Nitrogen 26 mg/dL (6-20); Calcium 8.1 mg/dL (8.6-10.3); Carbon Dioxide 24 mEq/L (23-29); Chloride 106 mEq/L (98-107); Glucose 95 mg/dL (70-105); Magnesium 1.6 mg/dL (1.6-2.6); Osmolality,Calculated 293 (280-300); Potassium 3.6 mEq/L (3.5-5.1); Sodium 139 mEq/L (136-145); eGFR For African Americans > 60 (> 60); eGFR For Non-African Americans > 60 (> 60)
[2020-11-27] MEDS: Levalbuterol Neb 0.63 MG/3 ML IH SCH ×4 (04:30→21:26)
[2020-11-27] MEDS ORDERED: Piperacillin/Tazobactam 3.375 GM VIAL ONE ×2 (08:22→08:52)
[2020-11-27] MEDS: Furosemide 40 MG/4 ML VIAL IVP SCH (08:28)
[2020-11-27] MEDS: lisinopriL 5 MG TABLET PO SCH (08:29)
[2020-11-27] MEDS: Metoprolol XL (24 HR) Succ 25 MG TAB.ER.24H PO SCH (08:30)
[2020-11-27] MEDS: Nicotine 21 MG PATCH.TD24 TD SCH (08:31)
[2020-11-27] MEDS: Vancomycin 1,250 MG/262.5 ML IV.SOLN IVPB SCH ×2 (11:45→20:24)
[2020-11-27] MEDS: Piperacillin/Tazobactam 3.375 GM in 0.9 % Sodium Chloride Mini Bag 100 ML IVPB SCH ×2 (11:52→15:55)
[2020-11-28] MEDS: Piperacillin/Tazobactam 3.375 GM in 0.9 % Sodium Chloride Mini Bag 100 ML IVPB SCH ×4 (00:12→23:33)
[2020-11-28 01:56] LABS: Fluid Source for Albumin PLEURAL FLUID
[2020-11-28 03:14] LABS: Basophils # 0.1 K/mcL (0.0-0.2); Basophils % 0.6 %; Eosinophils # 0.5 K/mcL (0.0-0.6); Eosinophils % 5.4 %; Hematocrit 39.7 % (37.5-50.1); Immature Granulocytes % 0.4 % (0-4); Lymphocytes # 3.1 K/mcL (0.6-4.6); Lymphocytes % 33.7 %; Mean Corpuscular HGB Conc 32.7 g/dL (31.6-35.5); Mean Corpuscular Hemoglobin 31.5 pg (28.0-33.3); Mean Corpuscular Volume 96.1 fL (83.0-100.0); Mean Platelet Volume 11.3 fL (9.4-12.4); Monocytes # 0.5 K/mcL (0.0-1.3); Monocytes % 5.7 %; Platelet Count 283 K/mcL (140-400); Red Blood Count 4.13 M/mcL (4.19-5.50); Red Cell Distribution Width 14.2 % (11.5-14.5); Segmented Neutrophils % 54.2 %; White Blood Count 9.3 K/mcL (4.3-11.1)
[2020-11-28 03:33] LABS: Magnesium 1.9 mg/dL (1.6-2.6)
[2020-11-28 03:34] LABS: BUN/Creatinine Ratio 34 (6-26); Blood Urea Nitrogen 27 mg/dL (6-20); Calcium 8.4 mg/dL (8.6-10.3); Carbon Dioxide 26 mEq/L (23-29); Chloride 106 mEq/L (98-107); Glucose 106 mg/dL (70-105); Osmolality,Calculated 290 (280-300); Potassium 4.3 mEq/L (3.5-5.1); Sodium 137 mEq/L (136-145); eGFR For African Americans > 60 (> 60); eGFR For Non-African Americans > 60 (> 60)
[2020-11-28] MEDS: Levalbuterol Neb 0.63 MG/3 ML IH SCH ×4 (03:58→22:13)
[2020-11-28] MEDS: Nicotine 21 MG PATCH.TD24 TD SCH (08:15)
[2020-11-28] MEDS: Metoprolol XL (24 HR) Succ 25 MG TAB.ER.24H PO SCH ×2 (08:15→21:05)
[2020-11-28] MEDS: Furosemide 40 MG/4 ML VIAL IVP SCH (08:15)
[2020-11-28] MEDS: lisinopriL 5 MG TABLET PO SCH (08:16)
[2020-11-28] MEDS: *HR* Heparin 5,000 UNIT/ML VIAL SQ SCH (18:13)
[2020-11-28] MEDS: Melatonin 3 MG TABLET PO SCH (21:04)
[2020-11-29 02:25] LABS: Basophils # 0.1 K/mcL (0.0-0.2); Basophils % 0.8 %; Eosinophils # 0.5 K/mcL (0.0-0.6); Eosinophils % 5.8 %; Hematocrit 40.8 % (37.5-50.1); Hemoglobin 13.6 g/dL (12.9-16.9); Immature Granulocytes % 0.4 % (0-4); Lymphocytes # 3.2 K/mcL (0.6-4.6); Lymphocytes % 37.7 %; Mean Corpuscular HGB Conc 33.3 g/dL (31.6-35.5); Monocytes # 0.6 K/mcL (0.0-1.3); Monocytes % 7.1 %; Neutrophils # 4.1 K/mcL (1.6-8.9); Platelet Count 306 K/mcL (140-400); Red Blood Count 4.25 M/mcL (4.19-5.50); Red Cell Distribution Width 14.1 % (11.5-14.5); Segmented Neutrophils % 48.2 %; White Blood Count 8.6 K/mcL (4.3-11.1)
[2020-11-29 02:47] LABS: BUN/Creatinine Ratio 41 (6-26); Blood Urea Nitrogen 30 mg/dL (6-20); Calcium 8.8 mg/dL (8.6-10.3); Carbon Dioxide 24 mEq/L (23-29); Chloride 106 mEq/L (98-107); Glucose 105 mg/dL (70-105); Osmolality,Calculated 289 (280-300); Potassium 4.3 mEq/L (3.5-5.1); Sodium 136 mEq/L (136-145); eGFR For African Americans > 60 (> 60); eGFR For Non-African Americans > 60 (> 60)
[2020-11-29] MEDS: Levalbuterol Neb 0.63 MG/3 ML IH SCH ×4 (04:13→22:23)
[2020-11-29] MEDS: *HR* Heparin 5,000 UNIT/ML VIAL SQ SCH ×2 (05:33→16:55)
[2020-11-29] MEDS: Piperacillin/Tazobactam 3.375 GM in 0.9 % Sodium Chloride Mini Bag 100 ML IVPB SCH ×2 (07:50→15:55)
[2020-11-29] MEDS: Furosemide 40 MG/4 ML VIAL IVP SCH (07:51)
[2020-11-29] MEDS: Nicotine 21 MG PATCH.TD24 TD SCH (07:52)
[2020-11-29] MEDS: lisinopriL 5 MG TABLET PO SCH (07:53)
[2020-11-29] MEDS: Metoprolol XL (24 HR) Succ 25 MG TAB.ER.24H PO SCH ×2 (07:53→20:25)
[2020-11-29] MEDS: Melatonin 3 MG TABLET PO SCH (20:25)
[2020-11-30 02:13] LABS: BUN/Creatinine Ratio 35 (6-26); Blood Urea Nitrogen 38 mg/dL (6-20); Calcium 9.5 mg/dL (8.6-10.3); Carbon Dioxide 30 mEq/L (23-29); Chloride 99 mEq/L (98-107); Glucose 86 mg/dL (70-105); Osmolality,Calculated 290 (280-300); Potassium 4.4 mEq/L (3.5-5.1); Sodium 136 mEq/L (136-145); eGFR For African Americans > 60 (> 60); eGFR For Non-African Americans > 60 (> 60)
[2020-11-30] MEDS: Levalbuterol Neb 0.63 MG/3 ML IH SCH ×2 (03:49→09:41)
[2020-11-30 05:34] VITALS: O2SAT 97
[2020-11-30] MEDS: *HR* Heparin 5,000 UNIT/ML VIAL SQ SCH (06:18)
[2020-11-30] MEDS: Metoprolol XL (24 HR) Succ 25 MG TAB.ER.24H PO SCH (09:13)
[2020-11-30] MEDS: lisinopriL 5 MG TABLET PO SCH (09:13)
[2020-11-30] MEDS: Nicotine 21 MG PATCH.TD24 TD SCH ×2 (09:14→12:08)
[2020-11-30 10:52] VITALS: BP 124/90; PULSE 102; TEMP 98.3
== END 2020-11-30 13:47 | disposition home or self-care (01) | DRG 720 ==
LOC: 2NENU → SUATTDRO 02:38
PROVIDERS: ADMIT Family Medicine; ATTEND Internal Medicine

== ENCOUNTER 2021-10-07 14:38 | Observation (INO) ==
[2021-10-07] MEDS ORDERED: Ondansetron ODT 4 MG TAB.RAPDIS SL PRN (17:24)
[2021-10-07] MEDS ORDERED: Naloxone 0.4 MG/ML INJ IVP PRN (17:24)
[2021-10-07] MEDS ORDERED: Melatonin 3 MG TABLET PO PRN (17:24)
[2021-10-07] MEDS ORDERED: Perflutren Lipid Microsphere 1.3 ML in 0.9 % Sodium Chloride 8.7 ML IVP PRN (17:28)
[2021-10-07] MEDS ORDERED: Ipratropium/Albuterol Neb 3 ML IH PRN (18:11)
[2021-10-07] MEDS: Nicotine 21 MG PATCH.TD24 TD SCH (18:15)
[2021-10-07] MEDS ORDERED: Tiotropium 10 INH DOSE IH SCH (18:30)
[2021-10-07 18:33] LABS: Albumin 3.6 g/dL (3.5-5.7); Albumin/Globulin Ratio 1.1 (1.1-2.2); Bilirubin,Direct 1.4 mg/dL (0.0-0.2); Bilirubin,Indirect 1.5 mg/dL (0.0-1.0); Bilirubin,Total 2.9 mg/dL (0.3-1.0); Globulin 3.2 g/dL (2.4-3.5); Total Protein 6.8 g/dL (6.4-8.9)
[2021-10-07 18:45] LABS: Estimated Average Glucose 128 mg/dl; Hemoglobin A1C 6.1 %
[2021-10-07 18:48] LABS: Thyroid Stimulating Hormone 2.737 mcIU/mL (0.340-5.600)
[2021-10-07 19:03] LABS: Vitamin B12 > 1500 pg/mL (250-1100)
[2021-10-07 19:49] LABS: Hepatitis B Surface Antigen Nonreactive (Nonreactive)
[2021-10-07 20:18] LABS: Hepatitis B Core IgM Nonreactive (Nonreactive)
[2021-10-07 20:19] LABS: Hepatitis A Antibody IgM Nonreactive (Nonreactive)
[2021-10-07 20:20] LABS: Hepatitis C Virus Antibody Nonreactive (Nonreactive)
[2021-10-07] MEDS ORDERED: Bumetanide 1 MG/4 ML VIAL IVP SCH (21:00)
[2021-10-07 23:06] LABS: ABG Base Excess 2 mEq/L (-2 to 3); ABG HCO3 21 mEq/L (21-27); ABG Oxygen Saturation 100 % (95-98); ABG PCO2 19 mmHg (35-45); ABG PH 7.64 pH Units (7.32-7.45); ABG PO2 152 mmHg (85-104); ABG TCO2 21 mEq/L (20-26)
[2021-10-07] MEDS: Metoprolol XL (24 HR) Succ 25 MG TAB.ER.24H PO SCH (23:22)
[2021-10-07 23:43] LABS: Bilirubin,Urine Negative (Negative); Blood,Urine Negative (Negative); Clarity,Urine Clear (Clear); Color,Urine Yellow (Yellow); Glucose,Urine (UA) Normal (Normal); Ketones,Urine Negative (Negative); Leukocyte Esterase,Urine Negative (Negative); Nitrite,Urine Negative (Negative); PH,Urine 6.5 pH Units (5.0-8.0); Protein,Urine Trace mg/dL (Neg-Trace); Specific Gravity,Urine 1.022 (1.010-1.025); Urobilinogen,Urine >=8.0 mg/dL (Normal)
[2021-10-07 23:48] LABS: Amphetamine Screen,Urine Positive ng/mL (Cutoff=1000); Barbiturate Screen,Urine Negative ng/mL (Cutoff=200); Benzodiazepines Screen,Urine Negative ng/mL (Cutoff=200); Cannabinoid Screen,Urine Positive ng/mL (Cutoff = 50); Cocaine Screen,Urine Negative ng/mL (Cutoff= 300); Opiate Screen,Urine Negative ng/mL (Cutoff=300); Phencyclidine Screen,Urine Negative ng/mL (Cutoff=25)
[2021-10-08 00:52] LABS: Basophils % 0.4 %; Eosinophils # 0.1 K/mcL (0.0-0.6); Eosinophils % 0.6 %; Immature Granulocytes % 0.5 % (0-4); Lymphocytes # 1.3 K/mcL (0.6-4.6); Lymphocytes % 11.1 %; Mean Corpuscular Volume 93.5 fL (83.0-100.0); Mean Platelet Volume 10.4 fL (9.4-12.4); Monocytes # 0.3 K/mcL (0.0-1.3); Neutrophils # 9.6 K/mcL (1.6-8.9); Nucleated Red Blood Cells 0.2 /100 WBC (0); Platelet Count 298 K/mcL (140-400); Red Blood Count 4.49 M/mcL (4.19-5.50); Red Cell Distribution Width 17.7 % (11.5-14.5); Segmented Neutrophils % 84.4 %; White Blood Count 11.4 K/mcL (4.3-11.1)
[2021-10-08 01:18] LABS: Alanine Aminotransferase 129 Units/L (7-52); Albumin 3.4 g/dL (3.5-5.7); Albumin/Globulin Ratio 1.1 (1.1-2.2); Alkaline Phosphatase 160 Units/L (34-104); Aspartate Amino Transferase 109 Units/L (13-39); BUN/Creatinine Ratio 29 (6-26); Bilirubin,Total 2.7 mg/dL (0.3-1.0); Blood Urea Nitrogen 34 mg/dL (6-20); Carbon Dioxide 28 mEq/L (23-29); Chloride 98 mEq/L (98-107); Chol/HDL Ratio 11.6 (0-4.9); Cholesterol 139 mg/dL (< 200); Globulin 3.2 g/dL (2.4-3.5); Glucose 139 mg/dL (70-105); HDL Cholesterol 12 mg/dL (40-59); LDL Cholesterol,Calculated 91 mg/dL (< 100); Magnesium 1.7 mg/dL (1.6-2.6); Osmolality,Calculated 292 (280-300); Phosphorous 2.5 mg/dL (2.7-4.5); Potassium 3.4 mEq/L (3.5-5.1); Sodium 136 mEq/L (136-145); Total Protein 6.6 g/dL (6.4-8.9); Triglycerides 180 mg/dL (< 150); eGFR For African Americans > 60 (> 60); eGFR For Non-African Americans > 60 (> 60)
[2021-10-08 01:23] LABS: Troponin I 0.05 ng/mL (< 0.04)
[2021-10-08 02:57] LABS: Basophils # 0.1 K/mcL (0.0-0.2); Basophils % 0.5 %; Eosinophils # 0.1 K/mcL (0.0-0.6); Eosinophils % 0.8 %; Hematocrit 41.1 % (37.5-50.1); Hemoglobin 12.9 g/dL (12.9-16.9); Immature Granulocytes % 0.6 % (0-4); Lymphocytes # 1.3 K/mcL (0.6-4.6); Mean Corpuscular HGB Conc 31.4 g/dL (31.6-35.5); Mean Corpuscular Hemoglobin 28.5 pg (28.0-33.3); Mean Corpuscular Volume 90.7 fL (83.0-100.0); Mean Platelet Volume 10.8 fL (9.4-12.4); Monocytes # 0.5 K/mcL (0.0-1.3); Monocytes % 5.1 %; Neutrophils # 8.5 K/mcL (1.6-8.9); Platelet Count 304 K/mcL (140-400); Red Blood Count 4.53 M/mcL (4.19-5.50); Red Cell Distribution Width 17.5 % (11.5-14.5); White Blood Count 10.5 K/mcL (4.3-11.1)
[2021-10-08] MEDS: *HR* Heparin 5,000 UNIT/ML VIAL SQ SCH ×2 (05:49→13:48)
[2021-10-08] MEDS: lisinopriL 5 MG TABLET PO SCH (08:18)
[2021-10-08] MEDS: Aspirin 81 MG TAB.CHEW PO SCH (08:18)
[2021-10-08] MEDS: Metoprolol XL (24 HR) Succ 25 MG TAB.ER.24H PO SCH ×2 (08:18→20:14)
[2021-10-08] MEDS: Bumetanide 1 MG/4 ML VIAL IVP SCH (08:18)
[2021-10-08] MEDS: Spironolactone 25 MG TABLET PO SCH (08:18)
[2021-10-08] MEDS: Nicotine 21 MG PATCH.TD24 TD SCH (08:19)
[2021-10-08] MEDS ORDERED: Bumetanide 1 MG/4 ML VIAL IVP SCH (09:00)
[2021-10-08] MEDS: Tiotropium 10 INH DOSE IH SCH (10:46)
[2021-10-08] MEDS ORDERED: Iopamidol - 370 500 ML MLS IVP ONE (13:10)
[2021-10-08] MEDS ORDERED: *HR* Heparin 5,000 UNIT/ML VIAL IVP PRN ×2 (18:06)
[2021-10-08] MEDS ORDERED: *HR* Heparin 5,000 UNIT/ML VIAL IVP ONE (18:06)
[2021-10-08] MEDS ORDERED: Heparin 25,000UNIT/250ML 1/2NS 25,000 UNIT/250 ML IV.SOLN IVC SCH (18:15)
[2021-10-08] MEDS ORDERED: Nicotine 7 MG PATCH.TD24 TD ONE (20:15)
[2021-10-09 01:36] LABS: Basophils % 0.3 %; Eosinophils # 0.1 K/mcL (0.0-0.6); Eosinophils % 1.1 %; Hematocrit 39.1 % (37.5-50.1); Hemoglobin 12.2 g/dL (12.9-16.9); Immature Granulocytes % 0.6 % (0-4); Lymphocytes # 2.2 K/mcL (0.6-4.6); Lymphocytes % 20.9 %; Mean Corpuscular HGB Conc 31.2 g/dL (31.6-35.5); Mean Corpuscular Hemoglobin 28.5 pg (28.0-33.3); Mean Corpuscular Volume 91.4 fL (83.0-100.0); Mean Platelet Volume 11.1 fL (9.4-12.4); Monocytes # 0.8 K/mcL (0.0-1.3); Monocytes % 7.9 %; Neutrophils # 7.3 K/mcL (1.6-8.9); Platelet Count 290 K/mcL (140-400); Red Blood Count 4.28 M/mcL (4.19-5.50); Red Cell Distribution Width 17.7 % (11.5-14.5); Segmented Neutrophils % 69.2 %; White Blood Count 10.5 K/mcL (4.3-11.1)
[2021-10-09 01:55] LABS: Alanine Aminotransferase 96 Units/L (7-52); Albumin 3.2 g/dL (3.5-5.7); Alkaline Phosphatase 145 Units/L (34-104); Aspartate Amino Transferase 68 Units/L (13-39); BUN/Creatinine Ratio 29 (6-26); Bilirubin,Total 2.4 mg/dL (0.3-1.0); Blood Urea Nitrogen 31 mg/dL (6-20); Calcium 8.5 mg/dL (8.6-10.3); Carbon Dioxide 31 mEq/L (23-29); Chloride 97 mEq/L (98-107); Globulin 3.1 g/dL (2.4-3.5); Glucose 103 mg/dL (70-105); Magnesium 1.6 mg/dL (1.6-2.6); Osmolality,Calculated 287 (280-300); Phosphorous 2.7 mg/dL (2.7-4.5); Potassium 3.3 mEq/L (3.5-5.1); Sodium 135 mEq/L (136-145); Total Protein 6.3 g/dL (6.4-8.9); eGFR For African Americans > 60 (> 60); eGFR For Non-African Americans > 60 (> 60)
[2021-10-09] MEDS ORDERED: *HR* LORazepam 2 MG/ML VIAL IVP ONE (05:45)
[2021-10-09] MEDS: Tiotropium 10 INH DOSE IH SCH (07:46)
[2021-10-09] MEDS: Doxycycline 100 MG CAPSULE PO SCH ×2 (08:59→21:58)
[2021-10-09] MEDS: Aspirin 81 MG TAB.CHEW PO SCH (08:59)
[2021-10-09] MEDS: lisinopriL 5 MG TABLET PO SCH (08:59)
[2021-10-09] MEDS: Nicotine 21 MG PATCH.TD24 TD SCH (09:00)
[2021-10-09] MEDS: Metoprolol XL (24 HR) Succ 25 MG TAB.ER.24H PO SCH ×2 (09:00→21:58)
[2021-10-09] MEDS: Bumetanide 1 MG/4 ML VIAL IVP SCH (09:00)
[2021-10-09] MEDS: Spironolactone 25 MG TABLET PO SCH (09:01)
[2021-10-09] MEDS ORDERED: *HR* Heparin 5,000 UNIT/ML VIAL IVP PRN (13:52)
[2021-10-09] MEDS ORDERED: *HR* Heparin 5,000 UNIT/ML VIAL IVP ONE (13:52)
[2021-10-09] MEDS: Heparin 25,000UNIT/250ML 1/2NS 25,000 UNIT/250 ML IV.SOLN IVC SCH (15:23)
[2021-10-09] MEDS ORDERED: *HR* Heparin 5,000 UNIT/ML VIAL SQ SCH (18:00)
[2021-10-09] MEDS: *HR* Heparin 5,000 UNIT/ML VIAL IVP PRN (22:08)
[2021-10-10 03:35] LABS: Basophils # 0.1 K/mcL (0.0-0.2); Basophils % 0.5 %; Eosinophils # 0.2 K/mcL (0.0-0.6); Eosinophils % 1.6 %; Hemoglobin 11.8 g/dL (12.9-16.9); Immature Granulocytes % 0.8 % (0-4); Lymphocytes # 2.2 K/mcL (0.6-4.6); Lymphocytes % 23.7 %; Mean Corpuscular HGB Conc 31.1 g/dL (31.6-35.5); Mean Corpuscular Hemoglobin 28.4 pg (28.0-33.3); Mean Corpuscular Volume 91.6 fL (83.0-100.0); Mean Platelet Volume 10.9 fL (9.4-12.4); Monocytes # 0.7 K/mcL (0.0-1.3); Platelet Count 298 K/mcL (140-400); Red Blood Count 4.15 M/mcL (4.19-5.50); Red Cell Distribution Width 17.3 % (11.5-14.5); Segmented Neutrophils % 65.4 %; White Blood Count 9.2 K/mcL (4.3-11.1)
[2021-10-10 03:51] LABS: Alanine Aminotransferase 78 Units/L (7-52); Albumin 3.3 g/dL (3.5-5.7); Albumin/Globulin Ratio 1.1 (1.1-2.2); Alkaline Phosphatase 154 Units/L (34-104); Aspartate Amino Transferase 48 Units/L (13-39); BUN/Creatinine Ratio 29 (6-26); Blood Urea Nitrogen 24 mg/dL (6-20); Calcium 8.5 mg/dL (8.6-10.3); Carbon Dioxide 25 mEq/L (23-29); Chloride 99 mEq/L (98-107); Globulin 2.9 g/dL (2.4-3.5); Glucose 117 mg/dL (70-105); Osmolality,Calculated 281 (280-300); Potassium 3.2 mEq/L (3.5-5.1); Sodium 133 mEq/L (136-145); Total Protein 6.2 g/dL (6.4-8.9); eGFR For African Americans > 60 (> 60); eGFR For Non-African Americans > 60 (> 60)
[2021-10-10] MEDS: *HR* Heparin 5,000 UNIT/ML VIAL IVP PRN (06:52)
[2021-10-10] MEDS: Tiotropium 10 INH DOSE IH SCH (07:36)
[2021-10-10] MEDS: Doxycycline 100 MG CAPSULE PO SCH (08:09)
[2021-10-10] MEDS: Metoprolol XL (24 HR) Succ 25 MG TAB.ER.24H PO SCH (08:10)
[2021-10-10] MEDS: lisinopriL 5 MG TABLET PO SCH (08:10)
[2021-10-10] MEDS: Aspirin 81 MG TAB.CHEW PO SCH (08:11)
[2021-10-10] MEDS: Spironolactone 25 MG TABLET PO SCH (08:11)
[2021-10-10] MEDS: Bumetanide 1 MG/4 ML VIAL IVP SCH (08:11)
[2021-10-10] MEDS ORDERED: Bumetanide 1 MG TABLET PO SCH (09:00)
[2021-10-10] MEDS: Nicotine 21 MG PATCH.TD24 TD SCH (09:21)
[2021-10-10 15:20] VITALS: BP 115/77; PULSE 92; TEMP 98.4; O2SAT 97
[2021-10-10] MEDS: Heparin 25,000UNIT/250ML 1/2NS 25,000 UNIT/250 ML IV.SOLN IVC SCH (16:30)
== END 2021-10-10 17:07 | disposition short-term general hospital (02) ==
LOC: 2ANU → SUATTDRO 16:53
PROVIDERS: ADMIT Student in an Organized Health Care Education/Training Program; ATTEND Family Medicine

== ENCOUNTER 2021-11-26 02:52 | Inpatient (IN) ==
[2021-11-26 04:12] LABS: Basophils % 0.5 %; Eosinophils # 0.1 K/mcL (0.0-0.6); Eosinophils % 0.7 %; Hematocrit 41.7 % (37.5-50.1); Hemoglobin 12.8 g/dL (12.9-16.9); Immature Granulocytes % 0.4 % (0-4); Lymphocytes # 2.2 K/mcL (0.6-4.6); Lymphocytes % 25.4 %; Mean Corpuscular HGB Conc 30.7 g/dL (31.6-35.5); Mean Corpuscular Hemoglobin 26.8 pg (28.0-33.3); Mean Corpuscular Volume 87.4 fL (83.0-100.0); Mean Platelet Volume 10.8 fL (9.4-12.4); Monocytes # 0.6 K/mcL (0.0-1.3); Monocytes % 6.8 %; Neutrophils # 5.7 K/mcL (1.6-8.9); Platelet Count 308 K/mcL (140-400); Red Blood Count 4.77 M/mcL (4.19-5.50); Red Cell Distribution Width 17.8 % (11.5-14.5); Segmented Neutrophils % 66.2 %; White Blood Count 8.6 K/mcL (4.3-11.1)
[2021-11-26 04:25] LABS: BUN/Creatinine Ratio 27 (6-26); Blood Urea Nitrogen 28 mg/dL (6-20); Carbon Dioxide 26 mEq/L (23-29); Chloride 93 mEq/L (98-107); Glucose 136 mg/dL (70-105); Osmolality,Calculated 282 (280-300); Potassium 3.6 mEq/L (3.5-5.1); Sodium 132 mEq/L (136-145); Troponin I 0.08 ng/mL (< 0.04); eGFR For African Americans > 60 (> 60); eGFR For Non-African Americans > 60 (> 60)
[2021-11-26 04:32] LABS: Influenza A PCR Negative (Negative); Influenza B PCR Negative (Negative); Resp. Syncytial Virus PCR Negative (Negative)
[2021-11-26 04:37] LABS: SARS-CoV-2 by PCR (In House) Negative (Negative)
[2021-11-26] MEDS ORDERED: cefTRIAXone 2,000 MG in 0.9 % Sodium Chloride 20 ML IVP ONE (04:43)
[2021-11-26] MEDS ORDERED: Azithromycin 500 MG in 0.9 % Sodium Chloride 250 ML IVPB ONE (04:44)
[2021-11-26] MEDS ORDERED: Acetaminophen 325 MG TABLET PO PRN (05:28)
[2021-11-26] MEDS ORDERED: Melatonin 3 MG TABLET PO PRN (05:28)
[2021-11-26] MEDS ORDERED: Naloxone 0.4 MG/ML INJ IVP PRN (05:28)
[2021-11-26] MEDS ORDERED: Furosemide 40 MG/4 ML VIAL IVP ONE (05:30)
[2021-11-26] MEDS ORDERED: *HR* LORazepam 0.5 MG TABLET PO ONE (06:40)
[2021-11-26] MEDS ORDERED: Morphine Sulfate 2 MG/ML SYRINGE IVP ONE (08:01)
[2021-11-26] MEDS ORDERED: 0.9 % Sodium Chloride 1,000 ML ONE (08:12)
[2021-11-26] MEDS ORDERED: *HR* Metoprolol 5 MG/5 ML VIAL IVP ONE (08:14)
[2021-11-26] MEDS ORDERED: Iopamidol - 370 500 ML MLS IVP ONE (08:23)
[2021-11-26] MEDS ORDERED: lisinopriL 10 MG TABLET PO SCH (09:00)
[2021-11-26] MEDS ORDERED: Metoprolol XL (24 HR) Succ 25 MG TAB.ER.24H PO SCH (09:00)
[2021-11-26] MEDS: Spironolactone 25 MG TABLET PO SCH (09:13)
[2021-11-26] MEDS: lisinopriL 5 MG TABLET PO SCH (09:14)
[2021-11-26] MEDS: Metoprolol XL (24 HR) Succ 25 MG TAB.ER.24H PO SCH ×2 (09:16→20:33)
[2021-11-26] MEDS: Multivit/Ca/Min/Fe/FA 1 TAB TABLET PO SCH (09:16)
[2021-11-26] MEDS: Apixaban 5 MG TABLET PO SCH ×2 (09:16→20:33)
[2021-11-26] MEDS: Aspirin Enteric Coated 81 MG Tablet PO SCH (09:16)
[2021-11-26] MEDS: Bumetanide 1 MG/4 ML VIAL IVP SCH (09:16)
[2021-11-26] MEDS: Nicotine 21 MG PATCH.TD24 TD SCH (09:17)
[2021-11-26] MEDS: Chlorhexidine Rinse 15 ML MOUTHWASH MM SCH ×2 (09:17→20:33)
[2021-11-26 10:34] LABS: INR 1.7; Prothrombin Time 19.2 Seconds (9.4-12.1)
[2021-11-26 10:37] LABS: Activated Partial Thrombo Time 33.8 Seconds (26.0-36.0)
[2021-11-26 10:45] LABS: Albumin 3.8 g/dL (3.5-5.7); Albumin/Globulin Ratio 1.2 (1.1-2.2); Bilirubin,Direct 1.3 mg/dL (0.0-0.2); Bilirubin,Indirect 1.2 mg/dL (0.0-1.0); Bilirubin,Total 2.5 mg/dL (0.3-1.0); Globulin 3.1 g/dL (2.4-3.5); Total Protein 6.9 g/dL (6.4-8.9)
[2021-11-26] MEDS: Ipratropium/Albuterol Neb 3 ML IH SCH ×3 (10:47→22:37)
[2021-11-26] MEDS: Budesonide/Formoterol 160/4.5 1 PUFF INH IH SCH ×2 (10:47→22:37)
[2021-11-26 12:16] LABS: Amphetamine Screen,Urine Positive ng/mL (Cutoff=1000); Barbiturate Screen,Urine Negative ng/mL (Cutoff=200); Benzodiazepines Screen,Urine Negative ng/mL (Cutoff=200); Cannabinoid Screen,Urine Positive ng/mL (Cutoff = 50); Cocaine Screen,Urine Negative ng/mL (Cutoff= 300); Opiate Screen,Urine Positive ng/mL (Cutoff=300); Phencyclidine Screen,Urine Negative ng/mL (Cutoff=25)
[2021-11-27 01:54] LABS: Basophils % 0.3 %; Eosinophils % 0.1 %; Hematocrit 38.4 % (37.5-50.1); Hemoglobin 12.1 g/dL (12.9-16.9); Immature Granulocytes % 0.4 % (0-4); Lymphocytes # 0.7 K/mcL (0.6-4.6); Lymphocytes % 6.1 %; Mean Corpuscular HGB Conc 31.5 g/dL (31.6-35.5); Mean Corpuscular Hemoglobin 27.1 pg (28.0-33.3); Mean Corpuscular Volume 85.9 fL (83.0-100.0); Mean Platelet Volume 10.8 fL (9.4-12.4); Monocytes # 0.5 K/mcL (0.0-1.3); Monocytes % 4.5 %; Platelet Count 290 K/mcL (140-400); Red Blood Count 4.47 M/mcL (4.19-5.50); Red Cell Distribution Width 17.8 % (11.5-14.5); Segmented Neutrophils % 88.6 %; White Blood Count 11.3 K/mcL (4.3-11.1)
[2021-11-27 02:34] LABS: Folate 18.3 ng/mL (3.0-16.0)
[2021-11-27 03:41] LABS: % Iron Saturation 9 % (20-55); BUN/Creatinine Ratio 27 (6-26); Blood Urea Nitrogen 21 mg/dL (6-20); Calcium 7.7 mg/dL (8.6-10.3); Carbon Dioxide 29 mEq/L (23-29); Chloride 95 mEq/L (98-107); Glucose 159 mg/dL (70-105); Iron 32 mcg/dL (65-175); Osmolality,Calculated 280 (280-300); Potassium 2.4 mEq/L (3.5-5.1); Sodium 132 mEq/L (136-145); Transferrin 268 mg/dL (203-362); eGFR For African Americans > 60 (> 60); eGFR For Non-African Americans > 60 (> 60)
[2021-11-27 03:53] LABS: Ferritin 49 ng/mL (20-250); Thyroid Stimulating Hormone 1.245 mcIU/mL (0.340-5.600)
[2021-11-27] MEDS: Ipratropium/Albuterol Neb 3 ML IH SCH ×4 (04:10→22:34)
[2021-11-27] MEDS: lisinopriL 5 MG TABLET PO SCH (08:53)
[2021-11-27] MEDS: Aspirin Enteric Coated 81 MG Tablet PO SCH (08:53)
[2021-11-27] MEDS: Multivit/Ca/Min/Fe/FA 1 TAB TABLET PO SCH (08:53)
[2021-11-27] MEDS: Nicotine 21 MG PATCH.TD24 TD SCH (08:54)
[2021-11-27] MEDS: Bumetanide 1 MG/4 ML VIAL IVP SCH (08:54)
[2021-11-27] MEDS: Apixaban 5 MG TABLET PO SCH ×2 (08:54→20:09)
[2021-11-27] MEDS: Metoprolol XL (24 HR) Succ 25 MG TAB.ER.24H PO SCH (08:54)
[2021-11-27] MEDS: Chlorhexidine Rinse 15 ML MOUTHWASH MM SCH ×2 (09:04→20:09)
[2021-11-27] MEDS: Spironolactone 25 MG TABLET PO SCH (09:07)
[2021-11-27] MEDS: *HR* Metoprolol 5 MG/5 ML VIAL IVP PRN (09:14)
[2021-11-27] MEDS: Ondansetron 4 MG/2 ML VIAL IVP PRN ×3 (09:27→23:14)
[2021-11-27] MEDS ORDERED: *HR* Metoprolol 5 MG/5 ML VIAL IVP ONE (09:52)
[2021-11-27] MEDS: *HR* LORazepam 1 MG TABLET PO PRN ×2 (10:20→20:09)
[2021-11-27] MEDS: Budesonide/Formoterol 160/4.5 1 PUFF INH IH SCH ×2 (10:46→22:34)
[2021-11-27] MEDS ORDERED: 0.9 % Sodium Chloride 500 ML ONE (11:24)
[2021-11-27] MEDS ORDERED: Nicotine 21 MG PATCH.TD24 TD SCH (11:30)
[2021-11-27] MEDS ORDERED: 0.9 % Sodium Chloride 500 ML IVC ONE (11:36)
[2021-11-27] MEDS ORDERED: *HR* Digoxin 0.5 MG/2 ML AMPUL IVP ONE (13:28)
[2021-11-27] MEDS: carvediloL 6.25 MG TABLET PO SCH (16:17)
[2021-11-27] MEDS: QUEtiapine Fumarate 25 MG TABLET PO SCH (20:20)
[2021-11-28] MEDS: *HR* Metoprolol 5 MG/5 ML VIAL IVP PRN (00:25)
[2021-11-28 00:45] LABS: ABG Base Excess 0 mEq/L (-2 to 3); ABG HCO3 23 mEq/L (21-27); ABG Oxygen Saturation 98 % (95-98); ABG PCO2 32 mmHg (35-45); ABG PH 7.46 pH Units (7.32-7.45); ABG PO2 102 mmHg (85-104); ABG TCO2 24 mEq/L (20-26)
[2021-11-28 00:48] LABS: Basophils # 0.1 K/mcL (0.0-0.2); Basophils % 0.4 %; Eosinophils % 0.2 %; Hematocrit 42.2 % (37.5-50.1); Hemoglobin 12.8 g/dL (12.9-16.9); Immature Granulocytes % 0.5 % (0-4); Lymphocytes # 2.3 K/mcL (0.6-4.6); Lymphocytes % 16.5 %; Mean Corpuscular HGB Conc 30.3 g/dL (31.6-35.5); Mean Corpuscular Hemoglobin 27.1 pg (28.0-33.3); Mean Corpuscular Volume 89.2 fL (83.0-100.0); Monocytes # 1.1 K/mcL (0.0-1.3); Monocytes % 8.1 %; Neutrophils # 10.2 K/mcL (1.6-8.9); Platelet Count 259 K/mcL (140-400); Red Blood Count 4.73 M/mcL (4.19-5.50); Red Cell Distribution Width 18.9 % (11.5-14.5); Segmented Neutrophils % 74.3 %; White Blood Count 13.8 K/mcL (4.3-11.1)
[2021-11-28] MEDS ORDERED: Furosemide 20 MG/2 ML VIAL IVP ONE (01:03)
[2021-11-28 01:14] LABS: BUN/Creatinine Ratio 21 (6-26); Blood Urea Nitrogen 30 mg/dL (6-20); Calcium 8.8 mg/dL (8.6-10.3); Carbon Dioxide 23 mEq/L (23-29); Chloride 93 mEq/L (98-107); Glucose 77 mg/dL (70-105); Magnesium 1.9 mg/dL (1.6-2.6); Osmolality,Calculated 273 (280-300); Phosphorous 2.3 mg/dL (2.7-4.5); Potassium 4.3 mEq/L (3.5-5.1); Sodium 129 mEq/L (136-145); Troponin I 0.22 ng/mL (< 0.04); eGFR For African Americans > 60 (> 60); eGFR For Non-African Americans 53 (> 60)
[2021-11-28] MEDS ORDERED: Amiodarone Premix 150 MG/100 ML BAG IVPB ONE (01:28)
[2021-11-28] MEDS ORDERED: Amiodarone Premix 360 MG/200 ML BAG IVC ONE ×2 (01:28→02:20)
[2021-11-28] MEDS: Ipratropium/Albuterol Neb 3 ML IH SCH ×4 (03:56→21:58)
[2021-11-28] MEDS: *HR* LORazepam 1 MG TABLET PO PRN (06:24)
[2021-11-28] MEDS: Amiodarone Premix 360 MG/200 ML BAG IVC SCH ×2 (07:44→13:16)
[2021-11-28] MEDS: lisinopriL 5 MG TABLET PO SCH (08:32)
[2021-11-28] MEDS: Nicotine 21 MG PATCH.TD24 TD SCH (08:32)
[2021-11-28] MEDS: Bumetanide 1 MG/4 ML VIAL IVP SCH (08:32)
[2021-11-28] MEDS: Spironolactone 25 MG TABLET PO SCH (08:33)
[2021-11-28] MEDS: carvediloL 6.25 MG TABLET PO SCH (08:33)
[2021-11-28] MEDS: Aspirin Enteric Coated 81 MG Tablet PO SCH (08:33)
[2021-11-28] MEDS: Chlorhexidine Rinse 15 ML MOUTHWASH MM SCH ×2 (08:33→21:04)
[2021-11-28] MEDS: Apixaban 5 MG TABLET PO SCH (08:33)
[2021-11-28] MEDS: Multivit/Ca/Min/Fe/FA 1 TAB TABLET PO SCH (08:33)
[2021-11-28] MEDS: Budesonide/Formoterol 160/4.5 1 PUFF INH IH SCH ×2 (09:31→21:59)
[2021-11-28] MEDS ORDERED: Azithromycin 500 MG in 0.9 % Sodium Chloride 250 ML IVPB SCH (14:00)
[2021-11-28] MEDS ORDERED: cefTRIAXone 1,000 MG in 0.9 % Sodium Chloride Mini Bag 100 ML IVPB SCH (14:00)
[2021-11-28] MEDS ORDERED: *HR* EPINEPHrine 1 MG/10 ML SYRINGE IVP ONE (14:58)
[2021-11-28] MEDS ORDERED: *HR* FentaNYL (PF) 100 MCG/2 ML VIAL IVP ONE (17:14)
[2021-11-28] MEDS ORDERED: Midazolam HCl 50 MG/50 ML IV.SOLN IVC SCH (17:15)
[2021-11-28] MEDS ORDERED: *HR* Midazolam HCl 5 MG/5 ML VIAL IVP ONE ×2 (17:18→17:19)
[2021-11-28] MEDS ORDERED: 0.9 % Sodium Chloride 1,000 ML ONE (17:24)
[2021-11-28] MEDS: FentaNYL (PF) 1,000 MCG/100 ML IV.SOLN IVC SCH ×2 (17:25→23:25)
[2021-11-28 17:28] LABS: Hematocrit 42.3 % (37.5-50.1); Hemoglobin 13.2 g/dL (12.9-16.9); Mean Corpuscular HGB Conc 31.2 g/dL (31.6-35.5); Mean Corpuscular Hemoglobin 27.7 pg (28.0-33.3); Mean Corpuscular Volume 88.7 fL (83.0-100.0); Platelet Count 234 K/mcL (140-400); Red Blood Count 4.77 M/mcL (4.19-5.50); Red Cell Distribution Width 19.3 % (11.5-14.5); White Blood Count 15.1 K/mcL (4.3-11.1)
[2021-11-28 17:32] LABS: ABG Base Excess -9 mEq/L (-2 to 3); ABG HCO3 15 mEq/L (21-27); ABG Oxygen Saturation 100 % (95-98); ABG PCO2 27 mmHg (35-45); ABG PH 7.35 pH Units (7.32-7.45); ABG PO2 429 mmHg (85-104); ABG TCO2 16 mEq/L (20-26); Blood Gas VT 500 cc
[2021-11-28 17:38] LABS: VBG Ionized Calcium 0.92 mmol/L (1.15-1.35)
[2021-11-28 18:01] LABS: Calcium 8.2 mg/dL (8.6-10.3); Magnesium 2.1 mg/dL (1.6-2.6); Phosphorous 4.7 mg/dL (2.7-4.5); Potassium 4.4 mEq/L (3.5-5.1); Troponin I 0.21 ng/mL (< 0.04)
[2021-11-28] MEDS ORDERED: Artificial Tears SOLN 15 ML BOTTLE BOTH EYES PRN (18:09)
[2021-11-28] MEDS: Norepinephrine 4 MG/254 ML IV.SOLN IVC SCH ×2 (20:15→22:30)
[2021-11-28] MEDS: Artificial Tears SOLN 15 ML BOTTLE BOTH EYES SCH (21:04)
[2021-11-28] MEDS: QUEtiapine Fumarate 25 MG TABLET PO SCH (21:05)
[2021-11-28] MEDS: Metoprolol XL (24 HR) Succ 25 MG TAB.ER.24H PO SCH (21:05)
[2021-11-28] MEDS ORDERED: DOBUTamine 1,000 MG/250 ML BAG IVC SCH (21:30)
[2021-11-28 21:59] LABS: ABG Base Excess -4 mEq/L (-2 to 3); ABG HCO3 21 mEq/L (21-27); ABG Oxygen Saturation 100 % (95-98); ABG PCO2 35 mmHg (35-45); ABG PH 7.38 pH Units (7.32-7.45); ABG PO2 193 mmHg (85-104); ABG TCO2 22 mEq/L (20-26); Blood Gas Modality ASSIST CONTROL; Blood Gas VT 500 cc
[2021-11-28 23:11] LABS: VBG Ionized Calcium 0.89 mmol/L (1.15-1.35)
[2021-11-28 23:28] LABS: Calcium 7.5 mg/dL (8.6-10.3); Potassium 6.1 mEq/L (3.5-5.1)
[2021-11-29] MEDS ORDERED: *HR* Heparin 5,000 UNIT/ML VIAL IVP PRN ×4 (00:09→00:19)
[2021-11-29] MEDS ORDERED: Iopamidol - 370 500 ML MLS IVP ONE (00:09)
[2021-11-29] MEDS ORDERED: *HR* Heparin 5,000 UNIT/ML VIAL IVP ONE ×2 (00:09→00:19)
[2021-11-29] MEDS ORDERED: *HR* Dextrose 50 % in Water (Syg) 50 ML SYRINGE IVP PRN (00:10)
[2021-11-29] MEDS ORDERED: D5% in Water 1,000 ML IVC PRN (00:10)
[2021-11-29] MEDS ORDERED: Dextrose Gel 15 GM/37.5 ML TUBE PO PRN ×2 (00:10)
[2021-11-29] MEDS ORDERED: Heparin 25,000UNIT/250ML 1/2NS 25,000 UNIT/250 ML IV.SOLN IVC SCH (00:15)
[2021-11-29 01:09] LABS: Potassium,Urine 90.5 mEq/L
[2021-11-29] MEDS: Sodium Bicarbonate 75 MEQ in 0.45 % Sodium Chloride 1,000 ML IVC SCH ×3 (01:21→14:13)
[2021-11-29] MEDS: Heparin 25,000UNIT/250ML 1/2NS 25,000 UNIT/250 ML IV.SOLN IVC SCH ×2 (01:22→23:45)
[2021-11-29] MEDS: Amiodarone Premix 360 MG/200 ML BAG IVC SCH ×2 (01:24→12:02)
[2021-11-29] MEDS: Ipratropium/Albuterol Neb 3 ML IH SCH ×4 (03:21→21:39)
[2021-11-29 04:45] LABS: ABG Base Excess 1 mEq/L (-2 to 3); ABG HCO3 26 mEq/L (21-27); ABG Oxygen Saturation 98 % (95-98); ABG PCO2 41 mmHg (35-45); ABG PH 7.41 pH Units (7.32-7.45); ABG PO2 112 mmHg (85-104); ABG TCO2 28 mEq/L (20-26); Blood Gas Modality ASSIST CONTROL; Blood Gas VT 500 cc
[2021-11-29] MEDS: Artificial Tears SOLN 15 ML BOTTLE BOTH EYES SCH ×7 (05:42→23:40)
[2021-11-29 05:53] LABS: Basophils % 0.1 %; Hematocrit 37.9 % (37.5-50.1); Hemoglobin 11.9 g/dL (12.9-16.9); Immature Granulocytes % 0.7 % (0-4); Lymphocytes # 1.2 K/mcL (0.6-4.6); Lymphocytes % 7.9 %; Mean Corpuscular HGB Conc 31.4 g/dL (31.6-35.5); Mean Corpuscular Hemoglobin 27.4 pg (28.0-33.3); Mean Corpuscular Volume 87.1 fL (83.0-100.0); Mean Platelet Volume 11.6 fL (9.4-12.4); Monocytes # 0.8 K/mcL (0.0-1.3); Monocytes % 4.9 %; Neutrophils # 13.4 K/mcL (1.6-8.9); Platelet Count 265 K/mcL (140-400); Red Blood Count 4.35 M/mcL (4.19-5.50); Red Cell Distribution Width 18.4 % (11.5-14.5); Segmented Neutrophils % 86.4 %; White Blood Count 15.5 K/mcL (4.3-11.1)
[2021-11-29 06:20] LABS: Albumin 2.8 g/dL (3.5-5.7); Albumin/Globulin Ratio 1.1 (1.1-2.2); Bilirubin,Direct 2.2 mg/dL (0.0-0.2); Bilirubin,Indirect 1.1 mg/dL (0.0-1.0); Bilirubin,Total 3.3 mg/dL (0.3-1.0); Calcium 7.3 mg/dL (8.6-10.3); Globulin 2.6 g/dL (2.4-3.5); Total Protein 5.4 g/dL (6.4-8.9)
[2021-11-29] MEDS: Insulin LISPRO 300 UNITS/3 ML VIAL SUBQ SCH ×6 (06:29→23:59)
[2021-11-29] MEDS: Norepinephrine 4 MG/254 ML IV.SOLN IVC SCH ×3 (06:30→20:28)
[2021-11-29] MEDS: Calcium Gluconate 1gm/50mL 1 GM/50 ML BAG IVPB SCH ×2 (06:30→07:17)
[2021-11-29] MEDS: FentaNYL (PF) 1,000 MCG/100 ML IV.SOLN IVC SCH (06:52)
[2021-11-29] MEDS: Chlorhexidine Rinse 15 ML MOUTHWASH MM SCH ×2 (08:10→19:53)
[2021-11-29] MEDS: Multivit/Ca/Min/Fe/FA 1 TAB TABLET PO SCH (08:10)
[2021-11-29] MEDS: Piperacillin/Tazobactam 3.375 GM in 0.9 % Sodium Chloride Mini Bag 100 ML IVPB SCH ×4 (08:10→23:33)
[2021-11-29] MEDS: Aspirin Enteric Coated 81 MG Tablet PO SCH (08:11)
[2021-11-29] MEDS: Metoprolol XL (24 HR) Succ 25 MG TAB.ER.24H PO SCH (08:11)
[2021-11-29] MEDS: Spironolactone 25 MG TABLET PO SCH (08:11)
[2021-11-29] MEDS: Nicotine 21 MG PATCH.TD24 TD SCH (08:12)
[2021-11-29] MEDS: Bumetanide 1 MG/4 ML VIAL IVP SCH (08:26)
[2021-11-29] MEDS ORDERED: Pantoprazole 40 MG VIAL IVP SCH (09:00)
[2021-11-29] MEDS ORDERED: SODIUM ZIRCONIUM CYCLOSILICATE 5 GM POWD.PACK PO SCH (09:00)
[2021-11-29 09:38] LABS: Activated Partial Thrombo Time 41.1 Seconds (26.0-36.0)
[2021-11-29 09:51] LABS: INR 4.9; Prothrombin Time 54.5 Seconds (9.4-12.1)
[2021-11-29] MEDS: Budesonide/Formoterol 160/4.5 1 PUFF INH IH SCH ×2 (09:59→21:40)
[2021-11-29] MEDS: Dexmedetomidine HCl 400 MCG/100 ML MLS IVC SCH (11:29)
[2021-11-29 15:26] LABS: INR 3.9
[2021-11-29 15:39] LABS: Albumin 2.8 g/dL (3.5-5.7); Bilirubin,Total 3.3 mg/dL (0.3-1.0); Calcium 7.6 mg/dL (8.6-10.3); Globulin 2.8 g/dL (2.4-3.5); Potassium 4.3 mEq/L (3.5-5.1); Total Protein 5.6 g/dL (6.4-8.9)
[2021-11-29] MEDS ORDERED: 0.9 % Sodium Chloride 500 ML IVC ONE (17:07)
[2021-11-29] MEDS: Albumin 25% 25gram/100mL 25 GM/100 ML IV.SOLN IVPB SCH ×2 (17:27→23:32)
[2021-11-29] MEDS: DOBUTamine 1,000 MG/250 ML BAG IVC SCH (18:21)
[2021-11-29] MEDS: QUEtiapine Fumarate 25 MG TABLET PO SCH (19:53)
[2021-11-29] MEDS: Apixaban 5 MG TABLET PO SCH (20:44)
[2021-11-29] MEDS ORDERED: *HR* Midazolam HCl 2 MG/2 ML VIAL IVP ONE (23:04)
[2021-11-30] MEDS ORDERED: Albumin 25% 25gram/100mL 25 GM/100 ML IV.SOLN IVPB SCH
[2021-11-30] MEDS: FentaNYL (PF) 1,000 MCG/100 ML IV.SOLN IVC SCH ×2 (01:36→18:20)
[2021-11-30] MEDS: Dexmedetomidine HCl 400 MCG/100 ML MLS IVC SCH (01:37)
[2021-11-30] MEDS: Norepinephrine 4 MG/254 ML IV.SOLN IVC SCH ×2 (02:03→09:18)
[2021-11-30] MEDS: Ipratropium/Albuterol Neb 3 ML IH SCH ×4 (03:38→22:31)
[2021-11-30 04:28] LABS: ABG Base Excess 0 mEq/L (-2 to 3); ABG HCO3 25 mEq/L (21-27); ABG Oxygen Saturation 99 % (95-98); ABG PCO2 39 mmHg (35-45); ABG PH 7.41 pH Units (7.32-7.45); ABG PO2 122 mmHg (85-104); ABG TCO2 26 mEq/L (20-26); Blood Gas Modality AF; Blood Gas VT 500 cc
[2021-11-30 04:35] LABS: Basophils % 0.1 %; Hemoglobin 11.6 g/dL (12.9-16.9); Immature Granulocytes % 0.6 % (0-4); Lymphocytes # 0.8 K/mcL (0.6-4.6); Lymphocytes % 6.3 %; Mean Corpuscular HGB Conc 32.2 g/dL (31.6-35.5); Mean Corpuscular Hemoglobin 27.8 pg (28.0-33.3); Mean Corpuscular Volume 86.3 fL (83.0-100.0); Mean Platelet Volume 10.9 fL (9.4-12.4); Monocytes # 0.7 K/mcL (0.0-1.3); Monocytes % 5.4 %; Neutrophils # 10.9 K/mcL (1.6-8.9); Platelet Count 226 K/mcL (140-400); Red Blood Count 4.17 M/mcL (4.19-5.50); Red Cell Distribution Width 18.7 % (11.5-14.5); Segmented Neutrophils % 87.6 %; White Blood Count 12.5 K/mcL (4.3-11.1)
[2021-11-30] MEDS: Artificial Tears SOLN 15 ML BOTTLE BOTH EYES SCH ×6 (04:36→23:17)
[2021-11-30] MEDS: Insulin LISPRO 300 UNITS/3 ML VIAL SUBQ SCH ×5 (04:36→20:33)
[2021-11-30 04:57] LABS: Calcium 7.6 mg/dL (8.6-10.3); Potassium 3.5 mEq/L (3.5-5.1)
[2021-11-30] MEDS ORDERED: Pantoprazole 40 MG VIAL IVP SCH (06:00)
[2021-11-30] MEDS: Budesonide/Formoterol 160/4.5 1 PUFF INH IH SCH ×2 (07:56→22:31)
[2021-11-30] MEDS: Bumetanide 1 MG/4 ML VIAL IVP SCH (08:00)
[2021-11-30] MEDS: Albumin 25% 25gram/100mL 25 GM/100 ML IV.SOLN IVPB SCH ×3 (08:00→23:16)
[2021-11-30] MEDS: Piperacillin/Tazobactam 3.375 GM in 0.9 % Sodium Chloride Mini Bag 100 ML IVPB SCH ×3 (08:05→23:16)
[2021-11-30] MEDS: Aspirin Enteric Coated 81 MG Tablet PO SCH (08:05)
[2021-11-30] MEDS: Multivit/Ca/Min/Fe/FA 1 TAB TABLET PO SCH (08:05)
[2021-11-30] MEDS: Chlorhexidine Rinse 15 ML MOUTHWASH MM SCH ×2 (08:05→20:01)
[2021-11-30] MEDS: Nicotine 21 MG PATCH.TD24 TD SCH (08:05)
[2021-11-30] MEDS ORDERED: Potassium Chloride Elixir 20 MEQ/15 ML UDC GTUBE ONE (10:59)
[2021-11-30] MEDS: Amiodarone Premix 360 MG/200 ML BAG IVC SCH ×3 (11:30→22:23)
[2021-11-30 11:38] LABS: INR 2.7; Prothrombin Time 29.7 Seconds (9.4-12.1)
[2021-11-30] MEDS: DOBUTamine 1,000 MG/250 ML BAG IVC SCH (18:02)
[2021-11-30] MEDS: QUEtiapine Fumarate 25 MG TABLET PO SCH (20:25)
[2021-11-30] MEDS: Calcium Gluconate 1gm/50mL 1 GM/50 ML BAG IVPB SCH ×2 (21:29→22:09)
[2021-12-01] MEDS: Insulin LISPRO 300 UNITS/3 ML VIAL SUBQ SCH ×3 (00:16→07:38)
[2021-12-01] MEDS: Heparin 25,000UNIT/250ML 1/2NS 25,000 UNIT/250 ML IV.SOLN IVC SCH (00:23)
[2021-12-01] MEDS ORDERED: *HR* Midazolam HCl 2 MG/2 ML VIAL IVP ONE (02:43)
[2021-12-01] MEDS ORDERED: *HR* Midazolam HCl 5 MG/5 ML VIAL IVP ONE (02:43)
[2021-12-01] MEDS: FentaNYL (PF) 1,000 MCG/100 ML IV.SOLN IVC SCH (03:43)
[2021-12-01 04:13] LABS: Basophils % 0.1 %; Eosinophils % 0.1 %; Hematocrit 32.9 % (37.5-50.1); Hemoglobin 10.6 g/dL (12.9-16.9); Immature Granulocytes % 0.7 % (0-4); Lymphocytes # 0.8 K/mcL (0.6-4.6); Lymphocytes % 9.4 %; Mean Corpuscular HGB Conc 32.2 g/dL (31.6-35.5); Mean Corpuscular Hemoglobin 27.7 pg (28.0-33.3); Mean Corpuscular Volume 86.1 fL (83.0-100.0); Mean Platelet Volume 11.3 fL (9.4-12.4); Monocytes # 0.4 K/mcL (0.0-1.3); Neutrophils # 7.3 K/mcL (1.6-8.9); Platelet Count 194 K/mcL (140-400); Red Blood Count 3.82 M/mcL (4.19-5.50); Red Cell Distribution Width 18.9 % (11.5-14.5); Segmented Neutrophils % 84.7 %; White Blood Count 8.7 K/mcL (4.3-11.1)
[2021-12-01 04:20] LABS: INR 2.1
[2021-12-01] MEDS: Ipratropium/Albuterol Neb 3 ML IH SCH ×4 (04:21→22:46)
[2021-12-01] MEDS: Artificial Tears SOLN 15 ML BOTTLE BOTH EYES SCH ×2 (04:22→07:43)
[2021-12-01 04:32] LABS: Albumin 3.7 g/dL (3.5-5.7); Albumin/Globulin Ratio 1.8 (1.1-2.2); Bilirubin,Direct 1.9 mg/dL (0.0-0.2); Bilirubin,Indirect 1.5 mg/dL (0.0-1.0); Bilirubin,Total 3.4 mg/dL (0.3-1.0); Calcium 8.5 mg/dL (8.6-10.3); Globulin 2.1 g/dL (2.4-3.5); Magnesium 2.1 mg/dL (1.6-2.6); Phosphorous 1.9 mg/dL (2.7-4.5); Potassium 3.2 mEq/L (3.5-5.1); Total Protein 5.8 g/dL (6.4-8.9)
[2021-12-01 04:37] LABS: ABG Base Excess 3 mEq/L (-2 to 3); ABG HCO3 24 mEq/L (21-27); ABG Oxygen Saturation 99 % (95-98); ABG PCO2 27 mmHg (35-45); ABG PH 7.55 pH Units (7.32-7.45); ABG PO2 98 mmHg (85-104); ABG TCO2 25 mEq/L (20-26); Blood Gas VT 500 cc
[2021-12-01] MEDS ORDERED: Potassium Phosphate 44 MEQ in 0.9 % Sodium Chloride 250 ML IVPB PRN (04:51)
[2021-12-01 06:11] LABS: ABG Base Excess 3 mEq/L (-2 to 3); ABG HCO3 25 mEq/L (21-27); ABG Oxygen Saturation 99 % (95-98); ABG PCO2 30 mmHg (35-45); ABG PH 7.53 pH Units (7.32-7.45); ABG PO2 128 mmHg (85-104); ABG TCO2 26 mEq/L (20-26); Blood Gas VT 420 cc
[2021-12-01] MEDS: Chlorhexidine Rinse 15 ML MOUTHWASH MM SCH (08:41)
[2021-12-01] MEDS: Pantoprazole 40 MG VIAL IVP SCH (08:41)
[2021-12-01] MEDS: Piperacillin/Tazobactam 3.375 GM in 0.9 % Sodium Chloride Mini Bag 100 ML IVPB SCH ×3 (08:41→23:19)
[2021-12-01] MEDS: Nicotine 21 MG PATCH.TD24 TD SCH (08:42)
[2021-12-01] MEDS: Albumin 25% 25gram/100mL 25 GM/100 ML IV.SOLN IVPB SCH (08:45)
[2021-12-01] MEDS: Aspirin Enteric Coated 81 MG Tablet PO SCH (08:45)
[2021-12-01] MEDS: Multivit/Ca/Min/Fe/FA 1 TAB TABLET PO SCH (08:45)
[2021-12-01] MEDS: Bumetanide 1 MG/4 ML VIAL IVP SCH (08:46)
[2021-12-01 08:55] LABS: ABG Base Excess 1 mEq/L (-2 to 3); ABG HCO3 25 mEq/L (21-27); ABG Oxygen Saturation 100 % (95-98); ABG PCO2 38 mmHg (35-45); ABG PH 7.43 pH Units (7.32-7.45); ABG PO2 161 mmHg (85-104); ABG TCO2 27 mEq/L (20-26); Blood Gas Modality CPAP/PS; Blood Gas Pressure Support 8 cm H2O
[2021-12-01] MEDS: Budesonide/Formoterol 160/4.5 1 PUFF INH IH SCH ×2 (10:04→22:45)
[2021-12-01] MEDS: Amiodarone Premix 360 MG/200 ML BAG IVC SCH ×2 (10:42→21:31)
[2021-12-01] MEDS: Bumetanide 1 MG TABLET PO SCH (16:26)
[2021-12-01] MEDS ORDERED: *HR* HYDROcodone/Acet 5/325 mg TABLET PO PRN (17:53)
[2021-12-01] MEDS: QUEtiapine Fumarate 25 MG TABLET PO SCH (20:02)
[2021-12-02] MEDS ORDERED: *HR* Metoprolol 5 MG/5 ML VIAL IVP PRN (03:23)
[2021-12-02 03:41] LABS: Hematocrit 35.3 % (37.5-50.1); Hemoglobin 11.2 g/dL (12.9-16.9); Immature Granulocytes % 0.9 % (0-4); Lymphocytes # 1.2 K/mcL (0.6-4.6); Lymphocytes % 13.7 %; Mean Corpuscular HGB Conc 31.7 g/dL (31.6-35.5); Mean Corpuscular Hemoglobin 27.3 pg (28.0-33.3); Mean Corpuscular Volume 86.1 fL (83.0-100.0); Mean Platelet Volume 10.9 fL (9.4-12.4); Monocytes # 0.5 K/mcL (0.0-1.3); Nucleated Red Blood Cells 0.2 /100 WBC (0); Platelet Count 192 K/mcL (140-400); Segmented Neutrophils % 79.4 %; White Blood Count 8.9 K/mcL (4.3-11.1)
[2021-12-02 03:48] LABS: VBG Ionized Calcium 1.05 mmol/L (1.15-1.35)
[2021-12-02 03:56] LABS: INR 2.5; Prothrombin Time 27.8 Seconds (9.4-12.1)
[2021-12-02 03:58] LABS: Albumin 3.6 g/dL (3.5-5.7); Albumin/Globulin Ratio 1.6 (1.1-2.2); Bilirubin,Direct 2.5 mg/dL (0.0-0.2); Bilirubin,Indirect 1.9 mg/dL (0.0-1.0); Bilirubin,Total 4.4 mg/dL (0.3-1.0); Globulin 2.3 g/dL (2.4-3.5); Magnesium 1.9 mg/dL (1.6-2.6); Phosphorous 3.9 mg/dL (2.7-4.5); Total Protein 5.9 g/dL (6.4-8.9)
[2021-12-02] MEDS: Ipratropium/Albuterol Neb 3 ML IH SCH ×4 (04:02→23:30)
[2021-12-02 06:09] LABS: Calcium 8.2 mg/dL (8.6-10.3); Potassium 4.3 mEq/L (3.5-5.1)
[2021-12-02] MEDS ORDERED: Calcium Gluconate 1gm/50mL 1 GM/50 ML BAG IVPB PRN ×2 (06:43→18:26)
[2021-12-02] MEDS: Pantoprazole 40 MG VIAL IVP SCH (08:29)
[2021-12-02] MEDS: Multivit/Ca/Min/Fe/FA 1 TAB TABLET PO SCH (08:30)
[2021-12-02] MEDS: Bumetanide 1 MG TABLET PO SCH ×2 (08:30→16:05)
[2021-12-02] MEDS: Piperacillin/Tazobactam 3.375 GM in 0.9 % Sodium Chloride Mini Bag 100 ML IVPB SCH ×2 (08:30→16:05)
[2021-12-02] MEDS: Aspirin Enteric Coated 81 MG Tablet PO SCH (08:30)
[2021-12-02] MEDS: Nicotine 21 MG PATCH.TD24 TD SCH (08:30)
[2021-12-02] MEDS: Amiodarone Premix 360 MG/200 ML BAG IVC SCH (09:32)
[2021-12-02] MEDS ORDERED: Heparin 25,000UNIT/250ML 1/2NS 25,000 UNIT/250 ML IV.SOLN IVC SCH (09:45)
[2021-12-02] MEDS: Budesonide/Formoterol 160/4.5 1 PUFF INH IH SCH ×2 (09:56→23:30)
[2021-12-02] MEDS ORDERED: Furosemide 40 MG/4 ML VIAL IVP ONE (11:43)
[2021-12-02] MEDS ORDERED: *HR* Amiodarone 200 MG TABLET PO SCH (12:00)
[2021-12-02] MEDS ORDERED: Acetaminophen 325 MG TABLET PO PRN (18:26)
[2021-12-02] MEDS ORDERED: Artificial Tears SOLN 15 ML BOTTLE BOTH EYES PRN (18:26)
[2021-12-02] MEDS ORDERED: Naloxone 0.4 MG/ML INJ IVP PRN (18:26)
[2021-12-02] MEDS ORDERED: Ondansetron 4 MG/2 ML VIAL IVP PRN (18:26)
[2021-12-02] MEDS: Apixaban 5 MG TABLET PO SCH (20:25)
[2021-12-02] MEDS: *HR* HYDROcodone/Acet 5/325 mg TABLET PO PRN (20:37)
[2021-12-02] MEDS ORDERED: Apixaban 5 MG TABLET PO SCH (21:00)
[2021-12-03] MEDS: Piperacillin/Tazobactam 3.375 GM in 0.9 % Sodium Chloride Mini Bag 100 ML IVPB SCH ×3 (00:40→16:57)
[2021-12-03] MEDS: Ipratropium/Albuterol Neb 3 ML IH SCH ×4 (03:57→22:49)
[2021-12-03] MEDS: Sennosides/Docusate Sodium TABLET PO PRN ×2 (06:25→22:21)
[2021-12-03] MEDS: Multivit/Ca/Min/Fe/FA 1 TAB TABLET PO SCH (08:51)
[2021-12-03] MEDS: Aspirin Enteric Coated 81 MG Tablet PO SCH (08:51)
[2021-12-03] MEDS: Pantoprazole 40 MG VIAL IVP SCH (08:52)
[2021-12-03] MEDS: *HR* Amiodarone 200 MG TABLET PO SCH (08:52)
[2021-12-03] MEDS: Bumetanide 1 MG TABLET PO SCH ×2 (08:52→15:48)
[2021-12-03] MEDS: *HR* HYDROcodone/Acet 5/325 mg TABLET PO PRN ×3 (08:52→22:22)
[2021-12-03] MEDS: Apixaban 5 MG TABLET PO SCH ×2 (08:52→22:21)
[2021-12-03] MEDS: Nicotine 21 MG PATCH.TD24 TD SCH (08:53)
[2021-12-03] MEDS ORDERED: *HR* Amiodarone 200 MG TABLET PO SCH (09:00)
[2021-12-03] MEDS: Metoprolol XL (24 HR) Succ 25 MG TAB.ER.24H PO SCH (09:07)
[2021-12-03] MEDS: Budesonide/Formoterol 160/4.5 1 PUFF INH IH SCH ×2 (11:24→22:49)
[2021-12-03] MEDS ORDERED: Calcium Gluconate 1gm/50mL 1 GM/50 ML BAG IVPB ONE (15:10)
[2021-12-03] MEDS: Melatonin 3 MG TABLET PO PRN (22:22)
[2021-12-04] MEDS: Piperacillin/Tazobactam 3.375 GM in 0.9 % Sodium Chloride Mini Bag 100 ML IVPB SCH ×3 (01:23→14:23)
[2021-12-04 02:49] LABS: Hematocrit 35.6 % (37.5-50.1); Hemoglobin 11.1 g/dL (12.9-16.9); Mean Corpuscular HGB Conc 31.2 g/dL (31.6-35.5); Mean Corpuscular Volume 86.6 fL (83.0-100.0); Mean Platelet Volume 11.1 fL (9.4-12.4); Platelet Count 225 K/mcL (140-400); Red Blood Count 4.11 M/mcL (4.19-5.50); White Blood Count 9.3 K/mcL (4.3-11.1)
[2021-12-04 02:55] LABS: VBG Ionized Calcium 1.05 mmol/L (1.15-1.35)
[2021-12-04 03:09] LABS: Calcium 8.5 mg/dL (8.6-10.3); Magnesium 1.6 mg/dL (1.6-2.6); Potassium 3.5 mEq/L (3.5-5.1)
[2021-12-04] MEDS: Ipratropium/Albuterol Neb 3 ML IH SCH ×4 (04:19→22:26)
[2021-12-04] MEDS: *HR* HYDROcodone/Acet 5/325 mg TABLET PO PRN ×2 (04:49→14:22)
[2021-12-04] MEDS ORDERED: Magnesium Sulfate 1 GM/102 ML PIGGYBACK IVPB ONE (07:50)
[2021-12-04] MEDS ORDERED: Iopamidol - 370 500 ML MLS IVP ONE (07:52)
[2021-12-04] MEDS: Pantoprazole 40 MG VIAL IVP SCH (09:42)
[2021-12-04] MEDS: Aspirin Enteric Coated 81 MG Tablet PO SCH (09:44)
[2021-12-04] MEDS: Nicotine 21 MG PATCH.TD24 TD SCH (09:44)
[2021-12-04] MEDS: Apixaban 5 MG TABLET PO SCH ×2 (09:44→22:16)
[2021-12-04] MEDS: Metoprolol XL (24 HR) Succ 25 MG TAB.ER.24H PO SCH (09:44)
[2021-12-04] MEDS: *HR* Amiodarone 200 MG TABLET PO SCH (09:44)
[2021-12-04] MEDS: Calcium Gluconate 1gm/50mL 1 GM/50 ML BAG IVPB SCH (09:44)
[2021-12-04] MEDS: Multivit/Ca/Min/Fe/FA 1 TAB TABLET PO SCH (09:45)
[2021-12-04] MEDS: Bumetanide 1 MG TABLET PO SCH (09:45)
[2021-12-04] MEDS: Budesonide/Formoterol 160/4.5 1 PUFF INH IH SCH ×2 (11:06→22:26)
[2021-12-04] MEDS: Spironolactone 25 MG TABLET PO SCH (14:22)
[2021-12-04] MEDS: polyethylene glycoL 3350 17 GM POWD.PACK PO SCH (14:23)
[2021-12-04] MEDS: Bumetanide 1 MG/4 ML VIAL IVP SCH (19:57)
[2021-12-04] MEDS ORDERED: Morphine Sulfate 2 MG/ML SYRINGE IVP ONE (21:56)
[2021-12-04] MEDS ORDERED: Calcium Gluconate 1gm/50mL 1 GM/50 ML BAG IVPB SCH (22:00)
[2021-12-05] MEDS: Calcium Gluconate 1gm/50mL 1 GM/50 ML BAG IVPB SCH (02:39)
[2021-12-05] MEDS: *HR* LORazepam 1 MG TABLET PO PRN (03:08)
[2021-12-05] MEDS: *HR* HYDROcodone/Acet 5/325 mg TABLET PO PRN ×3 (03:08→21:21)
[2021-12-05] MEDS: Piperacillin/Tazobactam 3.375 GM in 0.9 % Sodium Chloride Mini Bag 100 ML IVPB SCH ×4 (03:30→21:01)
[2021-12-05] MEDS: Ipratropium/Albuterol Neb 3 ML IH SCH ×5 (03:36→22:16)
[2021-12-05 05:12] LABS: Alanine Aminotransferase 75 Units/L (7-52); Albumin 3.7 g/dL (3.5-5.7); Albumin/Globulin Ratio 1.4 (1.1-2.2); Alkaline Phosphatase 179 Units/L (34-104); Aspartate Amino Transferase 99 Units/L (13-39); BUN/Creatinine Ratio 27 (6-26); Bilirubin,Total 3.2 mg/dL (0.3-1.0); Blood Urea Nitrogen 24 mg/dL (6-20); Calcium 8.9 mg/dL (8.6-10.3); Carbon Dioxide 26 mEq/L (23-29); Chloride 94 mEq/L (98-107); Globulin 2.7 g/dL (2.4-3.5); Glucose 102 mg/dL (70-105); Magnesium 1.5 mg/dL (1.6-2.6); Osmolality,Calculated 276 (280-300); Potassium 3.6 mEq/L (3.5-5.1); Sodium 131 mEq/L (136-145); Total Protein 6.4 g/dL (6.4-8.9)
[2021-12-05] MEDS: polyethylene glycoL 3350 17 GM POWD.PACK PO SCH (08:40)
[2021-12-05] MEDS: Nicotine 21 MG PATCH.TD24 TD SCH (08:40)
[2021-12-05] MEDS: Pantoprazole 40 MG VIAL IVP SCH (08:41)
[2021-12-05] MEDS: Aspirin Enteric Coated 81 MG Tablet PO SCH (08:42)
[2021-12-05] MEDS: Apixaban 5 MG TABLET PO SCH (08:42)
[2021-12-05] MEDS: Multivit/Ca/Min/Fe/FA 1 TAB TABLET PO SCH (08:42)
[2021-12-05] MEDS: Metoprolol XL (24 HR) Succ 25 MG TAB.ER.24H PO SCH (08:43)
[2021-12-05] MEDS: Bumetanide 1 MG/4 ML VIAL IVP SCH ×2 (08:43→17:11)
[2021-12-05] MEDS: *HR* Amiodarone 200 MG TABLET PO SCH (08:43)
[2021-12-05] MEDS: Spironolactone 25 MG TABLET PO SCH (08:43)
[2021-12-05] MEDS: Budesonide/Formoterol 160/4.5 1 PUFF INH IH SCH ×2 (09:22→22:16)
[2021-12-05 14:41] LABS: INR 2.7; Prothrombin Time 29.9 Seconds (9.4-12.1)
[2021-12-05 14:57] LABS: Lactate Dehydrogenase 336 Units/L (140-271); Total Protein 6.8 g/dL (6.4-8.9)
[2021-12-05 17:23] LABS: RBC,Pleural Fluid 5000 RBC/mcL
[2021-12-05 17:59] LABS: Total Protein,Pleural Fluid 2.8 g/dL
[2021-12-05] MEDS ORDERED: 0.9 % Sodium Chloride 250 ML IVC SCH (18:30)
[2021-12-05 18:52] LABS: Hemoglobin 12.5 g/dL (12.9-16.9)
[2021-12-05 21:12] LABS: Appearance of Pleural Fl Hazy (Clear)
[2021-12-06 03:31] LABS: Basophils % 0.2 %; Eosinophils # 0.1 K/mcL (0.0-0.6); Eosinophils % 0.8 %; Hematocrit 35.5 % (37.5-50.1); Hemoglobin 11.2 g/dL (12.9-16.9); Immature Granulocytes % 0.8 % (0-4); Lymphocytes # 1.3 K/mcL (0.6-4.6); Lymphocytes % 13.4 %; Mean Corpuscular HGB Conc 31.5 g/dL (31.6-35.5); Mean Corpuscular Hemoglobin 26.7 pg (28.0-33.3); Mean Corpuscular Volume 84.7 fL (83.0-100.0); Monocytes # 0.7 K/mcL (0.0-1.3); Monocytes % 7.2 %; Neutrophils # 7.4 K/mcL (1.6-8.9); Platelet Count 292 K/mcL (140-400); Red Blood Count 4.19 M/mcL (4.19-5.50); Segmented Neutrophils % 77.6 %; White Blood Count 9.6 K/mcL (4.3-11.1)
[2021-12-06 03:42] LABS: BUN/Creatinine Ratio 25 (6-26); Blood Urea Nitrogen 23 mg/dL (6-20); Calcium 8.5 mg/dL (8.6-10.3); Carbon Dioxide 29 mEq/L (23-29); Chloride 95 mEq/L (98-107); Glucose 110 mg/dL (70-105); Osmolality,Calculated 278 (280-300); Potassium 3.4 mEq/L (3.5-5.1); Sodium 132 mEq/L (136-145)
[2021-12-06] MEDS: Piperacillin/Tazobactam 3.375 GM in 0.9 % Sodium Chloride Mini Bag 100 ML IVPB SCH ×3 (03:46→20:52)
[2021-12-06] MEDS: *HR* HYDROcodone/Acet 5/325 mg TABLET PO PRN ×3 (03:58→20:53)
[2021-12-06] MEDS: Ipratropium/Albuterol Neb 3 ML IH SCH ×2 (04:10→11:05)
[2021-12-06] MEDS: Nicotine 21 MG PATCH.TD24 TD SCH (08:26)
[2021-12-06] MEDS: Multivit/Ca/Min/Fe/FA 1 TAB TABLET PO SCH (08:28)
[2021-12-06] MEDS: *HR* Amiodarone 200 MG TABLET PO SCH (08:28)
[2021-12-06] MEDS: Aspirin Enteric Coated 81 MG Tablet PO SCH (08:28)
[2021-12-06] MEDS: Metoprolol XL (24 HR) Succ 25 MG TAB.ER.24H PO SCH (08:28)
[2021-12-06] MEDS: Spironolactone 25 MG TABLET PO SCH (08:28)
[2021-12-06] MEDS: polyethylene glycoL 3350 17 GM POWD.PACK PO SCH (08:28)
[2021-12-06] MEDS: Bumetanide 1 MG/4 ML VIAL IVP SCH ×2 (08:32→17:27)
[2021-12-06] MEDS: lisinopriL 5 MG TABLET PO SCH (09:26)
[2021-12-06] MEDS: Budesonide/Formoterol 160/4.5 1 PUFF INH IH SCH ×2 (11:05→22:59)
[2021-12-06] MEDS: Sennosides/Docusate Sodium TABLET PO PRN (11:41)
[2021-12-06] MEDS: *HR* LORazepam 1 MG TABLET PO PRN ×2 (12:05→20:53)
[2021-12-06] MEDS ORDERED: Iopamidol - 370 500 ML MLS IVP ONE (14:30)
[2021-12-06 15:01] LABS: Hematocrit 36.5 % (37.5-50.1); Hemoglobin 11.5 g/dL (12.9-16.9)
[2021-12-06] MEDS ORDERED: Ipratropium/Albuterol Neb 3 ML IH PRN (15:37)
[2021-12-07] MEDS: traZODone 50 MG TABLET PO PRN ×2 (01:24→20:56)
[2021-12-07] MEDS: *HR* HYDROcodone/Acet 5/325 mg TABLET PO PRN ×4 (02:46→23:16)
[2021-12-07] MEDS: Melatonin 3 MG TABLET PO PRN ×2 (02:47→20:56)
[2021-12-07 03:15] LABS: Hematocrit 34.1 % (37.5-50.1); Mean Corpuscular HGB Conc 32.3 g/dL (31.6-35.5); Mean Corpuscular Hemoglobin 27.2 pg (28.0-33.3); Mean Corpuscular Volume 84.4 fL (83.0-100.0); Platelet Count 321 K/mcL (140-400); Red Blood Count 4.04 M/mcL (4.19-5.50); Red Cell Distribution Width 19.1 % (11.5-14.5); White Blood Count 9.5 K/mcL (4.3-11.1)
[2021-12-07 03:35] LABS: BUN/Creatinine Ratio 29 (6-26); Blood Urea Nitrogen 26 mg/dL (6-20); Calcium 8.7 mg/dL (8.6-10.3); Carbon Dioxide 28 mEq/L (23-29); Chloride 96 mEq/L (98-107); Glucose 91 mg/dL (70-105); Magnesium 1.6 mg/dL (1.6-2.6); Osmolality,Calculated 280 (280-300); Potassium 4.1 mEq/L (3.5-5.1); Sodium 133 mEq/L (136-145)
[2021-12-07] MEDS: Piperacillin/Tazobactam 3.375 GM in 0.9 % Sodium Chloride Mini Bag 100 ML IVPB SCH ×3 (04:43→20:54)
[2021-12-07] MEDS: Budesonide/Formoterol 160/4.5 1 PUFF INH IH SCH ×2 (07:49→20:08)
[2021-12-07] MEDS: Multivit/Ca/Min/Fe/FA 1 TAB TABLET PO SCH (08:51)
[2021-12-07] MEDS: Nicotine 21 MG PATCH.TD24 TD SCH (08:51)
[2021-12-07] MEDS: Metoprolol XL (24 HR) Succ 25 MG TAB.ER.24H PO SCH (08:51)
[2021-12-07] MEDS: Bumetanide 1 MG/4 ML VIAL IVP SCH (08:51)
[2021-12-07] MEDS: *HR* Amiodarone 200 MG TABLET PO SCH (08:51)
[2021-12-07] MEDS: Aspirin Enteric Coated 81 MG Tablet PO SCH (08:51)
[2021-12-07] MEDS: lisinopriL 5 MG TABLET PO SCH (08:51)
[2021-12-07] MEDS: Spironolactone 25 MG TABLET PO SCH (08:51)
[2021-12-07] MEDS: polyethylene glycoL 3350 17 GM POWD.PACK PO SCH (08:51)
[2021-12-07] MEDS: Sennosides/Docusate Sodium TABLET PO PRN (09:01)
[2021-12-07] MEDS: Magnesium Oxide 400 MG TABLET PO SCH (15:21)
[2021-12-07] MEDS: Bumetanide 1 MG TABLET PO SCH (17:04)
[2021-12-07] MEDS: *HR* LORazepam 1 MG TABLET PO PRN (18:31)
[2021-12-07 20:16] LABS: Fluid Source for Cholesterol PLEURAL FLUID
[2021-12-08 04:06] LABS: Basophils % 0.3 %; Eosinophils # 0.1 K/mcL (0.0-0.6); Eosinophils % 0.8 %; Hematocrit 34.5 % (37.5-50.1); Hemoglobin 10.7 g/dL (12.9-16.9); Immature Granulocytes % 0.6 % (0-4); Lymphocytes # 1.5 K/mcL (0.6-4.6); Lymphocytes % 15.6 %; Mean Corpuscular Hemoglobin 26.3 pg (28.0-33.3); Mean Corpuscular Volume 84.8 fL (83.0-100.0); Mean Platelet Volume 10.5 fL (9.4-12.4); Monocytes # 0.8 K/mcL (0.0-1.3); Monocytes % 8.1 %; Platelet Count 351 K/mcL (140-400); Red Blood Count 4.07 M/mcL (4.19-5.50); Red Cell Distribution Width 19.4 % (11.5-14.5); Segmented Neutrophils % 74.6 %; White Blood Count 9.3 K/mcL (4.3-11.1)
[2021-12-08 04:24] LABS: BUN/Creatinine Ratio 25 (6-26); Blood Urea Nitrogen 23 mg/dL (6-20); Calcium 8.6 mg/dL (8.6-10.3); Carbon Dioxide 27 mEq/L (23-29); Chloride 96 mEq/L (98-107); Glucose 105 mg/dL (70-105); Magnesium 1.5 mg/dL (1.6-2.6); Osmolality,Calculated 280 (280-300); Potassium 3.8 mEq/L (3.5-5.1); Sodium 133 mEq/L (136-145)
[2021-12-08] MEDS: Piperacillin/Tazobactam 3.375 GM in 0.9 % Sodium Chloride Mini Bag 100 ML IVPB SCH (04:50)
[2021-12-08] MEDS: *HR* HYDROcodone/Acet 5/325 mg TABLET PO PRN ×2 (05:28→20:02)
[2021-12-08] MEDS: Budesonide/Formoterol 160/4.5 1 PUFF INH IH SCH ×2 (07:56→20:28)
[2021-12-08] MEDS: Aspirin Enteric Coated 81 MG Tablet PO SCH (08:53)
[2021-12-08] MEDS: Multivit/Ca/Min/Fe/FA 1 TAB TABLET PO SCH (08:53)
[2021-12-08] MEDS: *HR* Amiodarone 200 MG TABLET PO SCH (08:53)
[2021-12-08] MEDS: lisinopriL 5 MG TABLET PO SCH (08:53)
[2021-12-08] MEDS: Nicotine 21 MG PATCH.TD24 TD SCH (08:53)
[2021-12-08] MEDS: Magnesium Oxide 400 MG TABLET PO SCH ×2 (08:53→20:03)
[2021-12-08] MEDS: Bumetanide 1 MG TABLET PO SCH ×2 (08:53→16:03)
[2021-12-08] MEDS: Spironolactone 25 MG TABLET PO SCH (08:53)
[2021-12-08] MEDS: Metoprolol XL (24 HR) Succ 25 MG TAB.ER.24H PO SCH (08:53)
[2021-12-08] MEDS: polyethylene glycoL 3350 17 GM POWD.PACK PO SCH (08:54)
[2021-12-08] MEDS ORDERED: Apixaban 5 MG TABLET PO SCH (09:00)
[2021-12-08 09:14] LABS: Cholesterol,Body Fluid 31 mg/dL
[2021-12-08] MEDS: traZODone 50 MG TABLET PO PRN (20:02)
[2021-12-09 03:51] LABS: BUN/Creatinine Ratio 28 (6-26); Blood Urea Nitrogen 23 mg/dL (6-20); Calcium 8.9 mg/dL (8.6-10.3); Carbon Dioxide 29 mEq/L (23-29); Chloride 98 mEq/L (98-107); Glucose 114 mg/dL (70-105); Osmolality,Calculated 287 (280-300); Potassium 3.6 mEq/L (3.5-5.1); Sodium 136 mEq/L (136-145)
[2021-12-09 03:58] LABS: Basophils % 0.3 %; Eosinophils # 0.1 K/mcL (0.0-0.6); Eosinophils % 0.8 %; Hematocrit 32.7 % (37.5-50.1); Hemoglobin 10.3 g/dL (12.9-16.9); Lymphocytes # 1.6 K/mcL (0.6-4.6); Lymphocytes % 17.8 %; Mean Corpuscular HGB Conc 31.5 g/dL (31.6-35.5); Mean Corpuscular Hemoglobin 26.7 pg (28.0-33.3); Mean Corpuscular Volume 84.7 fL (83.0-100.0); Mean Platelet Volume 10.6 fL (9.4-12.4); Monocytes # 0.9 K/mcL (0.0-1.3); Monocytes % 9.4 %; Neutrophils # 6.4 K/mcL (1.6-8.9); Platelet Count 375 K/mcL (140-400); Red Blood Count 3.86 M/mcL (4.19-5.50); Red Cell Distribution Width 19.3 % (11.5-14.5); Segmented Neutrophils % 70.7 %
[2021-12-09] MEDS: Nicotine 21 MG PATCH.TD24 TD SCH (08:39)
[2021-12-09] MEDS: Magnesium Oxide 400 MG TABLET PO SCH (08:40)
[2021-12-09] MEDS: polyethylene glycoL 3350 17 GM POWD.PACK PO SCH (08:40)
[2021-12-09] MEDS: *HR* Amiodarone 200 MG TABLET PO SCH (08:40)
[2021-12-09] MEDS: Aspirin Enteric Coated 81 MG Tablet PO SCH (08:40)
[2021-12-09] MEDS: Metoprolol XL (24 HR) Succ 25 MG TAB.ER.24H PO SCH (08:40)
[2021-12-09] MEDS: Spironolactone 25 MG TABLET PO SCH (08:40)
[2021-12-09] MEDS: Bumetanide 1 MG TABLET PO SCH (08:40)
[2021-12-09] MEDS: *HR* HYDROcodone/Acet 5/325 mg TABLET PO PRN (08:40)
[2021-12-09] MEDS: Multivit/Ca/Min/Fe/FA 1 TAB TABLET PO SCH (08:40)
[2021-12-09] MEDS: lisinopriL 5 MG TABLET PO SCH (08:40)
[2021-12-09 10:56] VITALS: BP 131/71; PULSE 75; TEMP 98.5
[2021-12-09] MEDS: Budesonide/Formoterol 160/4.5 1 PUFF INH IH SCH (11:10)
[2021-12-09 16:33] VITALS: O2SAT 98
== END 2021-12-09 17:42 | disposition home health service (06) | DRG 194 ==
LOC: EMEROOARM 02:52 → 2NENU 02:52 → SUATTDRO 05:22 → 2NENU 09:24 → SUATTDRO 11-27 07:54 → 2NNU 11-28 02:14 → ICNU 11-28 17:21 → 2NENU 12-02 20:13
PROVIDERS: ADMIT Internal Medicine; ATTEND Internal Medicine

== ENCOUNTER 2021-12-24 10:34 | Inpatient (IN) ==
[2021-12-24] MEDS ORDERED: Aspirin 81 MG TAB.CHEW PO ONE (11:01)
[2021-12-24] MEDS ORDERED: 0.9 % Sodium Chloride 500 ML IVC ONE (11:23)
[2021-12-24 11:26] LABS: Basophils % 0.5 %; Eosinophils # 0.1 K/mcL (0.0-0.6); Eosinophils % 0.7 %; Hematocrit 39.6 % (37.5-50.1); Hemoglobin 12.3 g/dL (12.9-16.9); Immature Granulocytes % 0.5 % (0-4); Lymphocytes % 24.5 %; Mean Corpuscular HGB Conc 31.1 g/dL (31.6-35.5); Mean Corpuscular Hemoglobin 27.3 pg (28.0-33.3); Mean Platelet Volume 9.9 fL (9.4-12.4); Monocytes # 0.6 K/mcL (0.0-1.3); Monocytes % 7.5 %; Neutrophils # 5.3 K/mcL (1.6-8.9); Platelet Count 398 K/mcL (140-400); Red Cell Distribution Width 22.8 % (11.5-14.5); Segmented Neutrophils % 66.3 %
[2021-12-24 11:34] LABS: BUN/Creatinine Ratio 20 (6-26); Blood Urea Nitrogen 17 mg/dL (6-20); Calcium 9.3 mg/dL (8.6-10.3); Carbon Dioxide 21 mEq/L (23-29); Chloride 100 mEq/L (98-107); Glucose 99 mg/dL (70-105); Osmolality,Calculated 276 (280-300); Potassium 4.5 mEq/L (3.5-5.1); Sodium 132 mEq/L (136-145)
[2021-12-24 11:40] LABS: Troponin I 0.04 ng/mL (< 0.04)
[2021-12-24 11:45] LABS: Activated Partial Thrombo Time 30.3 Seconds (26.0-36.0)
[2021-12-24 11:46] LABS: INR 1.6; Prothrombin Time 17.4 Seconds (9.4-12.1)
[2021-12-24 12:43] LABS: Influenza A PCR Negative (Negative); Influenza B PCR Negative (Negative); Resp. Syncytial Virus PCR Negative (Negative)
[2021-12-24 12:44] LABS: SARS-CoV-2 by PCR (In House) Negative (Negative)
[2021-12-24] MEDS ORDERED: *HR* Metoprolol 5 MG/5 ML VIAL IVP ONE ×2 (12:49→13:34)
[2021-12-24] MEDS: Nicotine 21 MG PATCH.TD24 TD SCH (13:41)
[2021-12-24] MEDS ORDERED: Ondansetron ODT 4 MG TAB.RAPDIS SL PRN (14:05)
[2021-12-24] MEDS ORDERED: Naloxone 0.4 MG/ML INJ IVP PRN (14:05)
[2021-12-24] MEDS ORDERED: Melatonin 3 MG TABLET PO PRN (14:05)
[2021-12-24] MEDS ORDERED: MOM Conc 10 ML UD.LIQ PO PRN (14:05)
[2021-12-24] MEDS ORDERED: Mag Hydrox/Al Hydrox/Simeth 30 ML UDC PO PRN (14:05)
[2021-12-24] MEDS ORDERED: Furosemide 40 MG/4 ML VIAL IVP SCH (14:15)
[2021-12-24] MEDS ORDERED: *HR* Heparin 5,000 UNIT/ML VIAL IVP PRN ×2 (14:32)
[2021-12-24] MEDS ORDERED: *HR* Heparin 5,000 UNIT/ML VIAL IVP ONE (14:32)
[2021-12-24] MEDS ORDERED: DilTIAZem 50 MG/50 ML IV.SOLN IVC SCH (14:45)
[2021-12-24] MEDS ORDERED: Heparin 25,000UNIT/250ML 1/2NS 25,000 UNIT/250 ML IV.SOLN IVC SCH ×2 (14:45)
[2021-12-24] MEDS: Levalbuterol Neb 1.25 MG/3 ML IH SCH ×2 (15:45→21:19)
[2021-12-24 16:34] LABS: Hematocrit 38.6 % (37.5-50.1); Hemoglobin 12.2 g/dL (12.9-16.9); Mean Corpuscular HGB Conc 31.6 g/dL (31.6-35.5); Mean Corpuscular Volume 88.7 fL (83.0-100.0); Mean Platelet Volume 10.1 fL (9.4-12.4); Platelet Count 379 K/mcL (140-400); Red Blood Count 4.35 M/mcL (4.19-5.50); White Blood Count 8.5 K/mcL (4.3-11.1)
[2021-12-24 16:44] LABS: INR 1.6
[2021-12-24 16:47] LABS: Heparin anti-factor XA UFH < 0.04 IU/mL (0.30-0.70)
[2021-12-24] MEDS: Furosemide 40 MG/4 ML VIAL IVP SCH (17:27)
[2021-12-24] MEDS: Metoprolol XL (24 HR) Succ 25 MG TAB.ER.24H PO SCH (17:31)
[2021-12-24 20:42] LABS: Amphetamine Screen,Urine Negative ng/mL (Cutoff=1000); Barbiturate Screen,Urine Negative ng/mL (Cutoff=200); Benzodiazepines Screen,Urine Negative ng/mL (Cutoff=200); Cannabinoid Screen,Urine Negative ng/mL (Cutoff = 50); Cocaine Screen,Urine Negative ng/mL (Cutoff= 300); Opiate Screen,Urine Negative ng/mL (Cutoff=300); Phencyclidine Screen,Urine Negative ng/mL (Cutoff=25)
[2021-12-24] MEDS: Apixaban 5 MG TABLET PO SCH (20:53)
[2021-12-24] MEDS: Levalbuterol 1 PUFF INHALER IH SCH (21:29)
[2021-12-25] MEDS: Levalbuterol 1 PUFF INHALER IH SCH ×4 (04:04→23:04)
[2021-12-25] MEDS ORDERED: *HR* HYDROcodone/Acet 5/325 mg TABLET PO ONE (04:45)
[2021-12-25 06:30] LABS: Basophils # 0.1 K/mcL (0.0-0.2); Basophils % 0.9 %; Eosinophils # 0.1 K/mcL (0.0-0.6); Eosinophils % 1.1 %; Hematocrit 36.2 % (37.5-50.1); Hemoglobin 11.2 g/dL (12.9-16.9); Immature Granulocytes % 0.6 % (0-4); Lymphocytes # 1.6 K/mcL (0.6-4.6); Lymphocytes % 25.8 %; Mean Corpuscular HGB Conc 30.9 g/dL (31.6-35.5); Mean Corpuscular Hemoglobin 27.3 pg (28.0-33.3); Mean Corpuscular Volume 88.1 fL (83.0-100.0); Mean Platelet Volume 10.3 fL (9.4-12.4); Monocytes # 0.6 K/mcL (0.0-1.3); Monocytes % 9.3 %; Platelet Count 359 K/mcL (140-400); Red Blood Count 4.11 M/mcL (4.19-5.50); Red Cell Distribution Width 22.7 % (11.5-14.5); Segmented Neutrophils % 62.3 %; White Blood Count 6.4 K/mcL (4.3-11.1)
[2021-12-25 06:57] LABS: Albumin 3.7 g/dL (3.5-5.7); Albumin/Globulin Ratio 1.3 (1.1-2.2); Bilirubin,Total 2.4 mg/dL (0.3-1.0); Calcium 8.9 mg/dL (8.6-10.3); Globulin 2.9 g/dL (2.4-3.5); Potassium 3.9 mEq/L (3.5-5.1); Total Protein 6.6 g/dL (6.4-8.9)
[2021-12-25] MEDS ORDERED: *HR* Amiodarone 200 MG TABLET PO SCH (09:00)
[2021-12-25] MEDS ORDERED: Metoprolol XL (24 HR) Succ 25 MG TAB.ER.24H PO SCH (09:00)
[2021-12-25] MEDS: Metoprolol XL (24 HR) Succ 25 MG TAB.ER.24H PO SCH (09:51)
[2021-12-25] MEDS: Aspirin 81 MG TAB.CHEW PO SCH (09:51)
[2021-12-25] MEDS: Apixaban 5 MG TABLET PO SCH (09:51)
[2021-12-25] MEDS: Nicotine 21 MG PATCH.TD24 TD SCH (09:51)
[2021-12-25] MEDS: lisinopriL 5 MG TABLET PO SCH (09:51)
[2021-12-25] MEDS: Furosemide 40 MG/4 ML VIAL IVP SCH (09:52)
[2021-12-25 13:56] LABS: Hematocrit 36.7 % (37.5-50.1); Hemoglobin 11.8 g/dL (12.9-16.9); Mean Corpuscular HGB Conc 32.2 g/dL (31.6-35.5); Mean Corpuscular Volume 87.2 fL (83.0-100.0); Platelet Count 369 K/mcL (140-400); Red Blood Count 4.21 M/mcL (4.19-5.50); Red Cell Distribution Width 22.6 % (11.5-14.5); White Blood Count 6.8 K/mcL (4.3-11.1)
[2021-12-25 14:18] LABS: INR 2.6; Prothrombin Time 29.1 Seconds (9.4-12.1)
[2021-12-25] MEDS: *HR* HYDROcodone/Acet 5/325 mg TABLET PO PRN (14:18)
[2021-12-25 14:21] LABS: Heparin anti-factor XA UFH 1.93 IU/mL (0.30-0.70)
[2021-12-25] MEDS: Spironolactone 25 MG TABLET PO SCH (16:32)
[2021-12-25] MEDS: *HR* Amiodarone 200 MG TABLET PO SCH (21:00)
[2021-12-25] MEDS: Bumetanide 1 MG TABLET PO SCH (21:00)
[2021-12-26] MEDS: *HR* HYDROcodone/Acet 5/325 mg TABLET PO PRN ×3 (00:06→20:18)
[2021-12-26] MEDS: Levalbuterol 1 PUFF INHALER IH SCH ×4 (03:26→22:18)
[2021-12-26] MEDS ORDERED: Heparin 25,000UNIT/250ML 1/2NS 25,000 UNIT/250 ML IV.SOLN IVC SCH (09:00)
[2021-12-26] MEDS ORDERED: *HR* Heparin 5,000 UNIT/ML VIAL IVP ONE (09:00)
[2021-12-26] MEDS ORDERED: *HR* Heparin 5,000 UNIT/ML VIAL IVP PRN ×2 (09:00)
[2021-12-26] MEDS: Metoprolol XL (24 HR) Succ 25 MG TAB.ER.24H PO SCH (09:50)
[2021-12-26] MEDS: lisinopriL 5 MG TABLET PO SCH (09:50)
[2021-12-26] MEDS: *HR* Amiodarone 200 MG TABLET PO SCH ×2 (09:50→20:18)
[2021-12-26] MEDS: Spironolactone 25 MG TABLET PO SCH (09:50)
[2021-12-26] MEDS: Aspirin 81 MG TAB.CHEW PO SCH (09:50)
[2021-12-26] MEDS: Nicotine 21 MG PATCH.TD24 TD SCH (09:51)
[2021-12-26] MEDS: Bumetanide 1 MG TABLET PO SCH ×2 (09:51→20:18)
[2021-12-26] MEDS: Heparin 25,000UNIT/250ML 1/2NS 25,000 UNIT/250 ML IV.SOLN IVC SCH (10:07)
[2021-12-27 01:23] LABS: Basophils % 0.5 %; Eosinophils # 0.1 K/mcL (0.0-0.6); Eosinophils % 2.1 %; Hematocrit 35.9 % (37.5-50.1); Hemoglobin 11.1 g/dL (12.9-16.9); Immature Granulocytes % 0.5 % (0-4); Lymphocytes # 1.7 K/mcL (0.6-4.6); Lymphocytes % 27.7 %; Mean Corpuscular HGB Conc 30.9 g/dL (31.6-35.5); Mean Corpuscular Hemoglobin 27.2 pg (28.0-33.3); Monocytes # 0.5 K/mcL (0.0-1.3); Monocytes % 8.6 %; Neutrophils # 3.8 K/mcL (1.6-8.9); Platelet Count 347 K/mcL (140-400); Red Blood Count 4.08 M/mcL (4.19-5.50); Red Cell Distribution Width 21.9 % (11.5-14.5); Segmented Neutrophils % 60.6 %; White Blood Count 6.3 K/mcL (4.3-11.1)
[2021-12-27 01:30] LABS: Heparin anti-factor XA UFH 0.29 IU/mL (0.30-0.70)
[2021-12-27 01:34] LABS: BUN/Creatinine Ratio 21 (6-26); Blood Urea Nitrogen 18 mg/dL (6-20); Calcium 8.3 mg/dL (8.6-10.3); Carbon Dioxide 28 mEq/L (23-29); Chloride 96 mEq/L (98-107); Glucose 113 mg/dL (70-105); Magnesium 1.4 mg/dL (1.6-2.6); Osmolality,Calculated 281 (280-300); Phosphorous 3.5 mg/dL (2.7-4.5); Potassium 3.1 mEq/L (3.5-5.1); Sodium 134 mEq/L (136-145)
[2021-12-27] MEDS ORDERED: *HR* Heparin 5,000 UNIT/ML VIAL IVP PRN ×2 (02:06)
[2021-12-27 02:31] LABS: Activated Partial Thrombo Time 35.8 Seconds (26.0-36.0)
[2021-12-27] MEDS: Levalbuterol 1 PUFF INHALER IH SCH ×4 (04:48→21:28)
[2021-12-27] MEDS: Spironolactone 25 MG TABLET PO SCH (08:20)
[2021-12-27] MEDS: Aspirin 81 MG TAB.CHEW PO SCH (08:20)
[2021-12-27] MEDS: Bumetanide 1 MG TABLET PO SCH ×2 (08:20→22:24)
[2021-12-27] MEDS: Metoprolol XL (24 HR) Succ 25 MG TAB.ER.24H PO SCH (08:20)
[2021-12-27] MEDS: lisinopriL 5 MG TABLET PO SCH (08:22)
[2021-12-27] MEDS: *HR* Amiodarone 200 MG TABLET PO SCH ×2 (08:22→22:25)
[2021-12-27] MEDS: Nicotine 21 MG PATCH.TD24 TD SCH (08:32)
[2021-12-27] MEDS: *HR* HYDROcodone/Acet 5/325 mg TABLET PO PRN ×2 (09:07→18:23)
[2021-12-27] MEDS: Heparin 25,000UNIT/250ML 1/2NS 25,000 UNIT/250 ML IV.SOLN IVC SCH (14:36)
[2021-12-27] MEDS ORDERED: *HR* FentaNYL (PF) 100 MCG/2 ML VIAL ONE (16:43)
[2021-12-27] MEDS ORDERED: *HR* Midazolam HCl 2 MG/2 ML VIAL ONE (16:43)
[2021-12-27] MEDS ORDERED: 0.9 % Sodium Chloride 2,000 ML ONE (16:43)
[2021-12-27] MEDS ORDERED: Iopamidol - 370 200 ML INFUS..BTL ONE (16:44)
[2021-12-27] MEDS ORDERED: *HR* Heparin 10,000 UNIT/10 ML VIAL ONE (16:44)
[2021-12-27] MEDS ORDERED: Nitroglycerin 1,000 MCG/5 ML VIAL IV ONE (16:44)
[2021-12-27] MEDS ORDERED: Heparin 1,000 UNITS/500 mL 500 ML ONE (16:44)
[2021-12-27] MEDS: Apixaban 5 MG TABLET PO SCH (22:25)
[2021-12-28 02:10] LABS: Basophils # 0.1 K/mcL (0.0-0.2); Basophils % 0.6 %; Eosinophils # 0.1 K/mcL (0.0-0.6); Eosinophils % 1.8 %; Hematocrit 34.4 % (37.5-50.1); Hemoglobin 10.6 g/dL (12.9-16.9); Immature Granulocytes % 0.8 % (0-4); Lymphocytes # 2.1 K/mcL (0.6-4.6); Lymphocytes % 26.7 %; Mean Corpuscular HGB Conc 30.8 g/dL (31.6-35.5); Mean Corpuscular Hemoglobin 27.5 pg (28.0-33.3); Mean Corpuscular Volume 89.4 fL (83.0-100.0); Mean Platelet Volume 9.9 fL (9.4-12.4); Monocytes # 0.8 K/mcL (0.0-1.3); Monocytes % 10.1 %; Neutrophils # 4.7 K/mcL (1.6-8.9); Platelet Count 350 K/mcL (140-400); Red Blood Count 3.85 M/mcL (4.19-5.50); Red Cell Distribution Width 21.9 % (11.5-14.5); White Blood Count 7.8 K/mcL (4.3-11.1)
[2021-12-28 02:29] LABS: Calcium 8.7 mg/dL (8.6-10.3); Magnesium 1.7 mg/dL (1.6-2.6); Phosphorous 3.9 mg/dL (2.7-4.5); Potassium 3.3 mEq/L (3.5-5.1)
[2021-12-28] MEDS: Levalbuterol 1 PUFF INHALER IH SCH ×3 (04:34→15:19)
[2021-12-28] MEDS: Bumetanide 1 MG TABLET PO SCH (07:47)
[2021-12-28] MEDS: Spironolactone 25 MG TABLET PO SCH (07:47)
[2021-12-28] MEDS: lisinopriL 5 MG TABLET PO SCH (07:48)
[2021-12-28] MEDS: Apixaban 5 MG TABLET PO SCH (07:48)
[2021-12-28] MEDS: *HR* Amiodarone 200 MG TABLET PO SCH (07:49)
[2021-12-28] MEDS: Aspirin 81 MG TAB.CHEW PO SCH (07:49)
[2021-12-28] MEDS: Metoprolol XL (24 HR) Succ 25 MG TAB.ER.24H PO SCH (07:49)
[2021-12-28] MEDS: Nicotine 21 MG PATCH.TD24 TD SCH (07:54)
[2021-12-28] MEDS: *HR* HYDROcodone/Acet 5/325 mg TABLET PO PRN (07:55)
[2021-12-28 11:48] VITALS: BP 114/65; PULSE 77; TEMP 97.5
[2021-12-28 12:15] VITALS: O2SAT 97
== END 2021-12-28 16:10 | disposition home or self-care (01) | DRG 192 ==
LOC: 2ANU 10:34 → EMEROOARM 10:34 → SUATTDRO 14:33 → 2ANU 15:29
PROVIDERS: ADMIT Internal Medicine; ATTEND Internal Medicine